=== PATIENT | female | born 1945 | race Caucasian/White ===

== ENCOUNTER 2016-12-12 01:23 | Emergency (ER) | payer MEDICARE, MEDICAID ==
[2016-12-12] MEDS ORDERED: ASPIRIN 81 MG TABLET, CHEWABLE PO ONE (01:33)
[2016-12-12 01:39] LABS: ABSOLUTE BASOPHILS # (AUTO) 0.1 10^3/uL (0.0-0.2); ABSOLUTE LYMPHOCYTES (AUTO) 1.2 10^3/uL (0.5-4.7); ABSOLUTE MONOCYTES (AUTO) 0.3 10^3/uL (0.1-1.4); ABSOLUTE NEUT (AUTO) 7.7 10^3/uL (1.7-8.2); BASOPHILS % (AUTO) 0.6 % (0-2); EOSINOPHILS % (AUTO) 0.2 % (0-6); HEMOGLOBIN 12.3 g/dL (12.0-15.5); HGB HCT DIFFERENCE -0.1; LYMPHOCYTES % (AUTO) 12.8 % (13-45); MEAN CORPUSCULAR HEMOGLOBIN 32.8 pg (27.0-33.4); MEAN CORPUSCULAR HGB CONC 33.3 g/dL (32.0-36.0); MEAN CORPUSCULAR VOLUME 99 fl (80-97); MONOCYTES % (AUTO) 3.2 % (3-13); RED BLOOD COUNT 3.75 10^6/uL (3.72-5.28); RED CELL DISTRIBUTION WIDTH 13.9 % (11.5-14.0); SEGMENTED NEUTROPHILS % (AUTO) 83.2 % (42-78); WHITE BLOOD COUNT 9.3 10^3/uL (4.0-10.5)
[2016-12-12 02:09] LABS: ALANINE AMINOTRANSFERASE 31 U/L (9-52); ALBUMIN 3.9 g/dL (3.5-5.0); ALKALINE PHOSPHATASE 70 U/L (38-126); ANION GAP 11 (5-19); ASPARTATE AMINO TRANSFERASE 34 U/L (14-36); BILIRUBIN,DIRECT 0.4 mg/dL (0.0-0.4); BILIRUBIN,TOTAL 0.7 mg/dL (0.2-1.3); BLOOD UREA NITROGEN 12 mg/dL (7-20); CALCIUM 9.3 mg/dL (8.4-10.2); CARBON DIOXIDE 26 mmol/L (22-30); CHLORIDE 106 mmol/L (98-107); CREATINE KINASE 72 U/L (30-135); CREATININE RESULT 0.62 mg/dL (0.52-1.25); GLUCOSE 108 mg/dL (75-110); POTASSIUM 4.3 mmol/L (3.6-5.0); SODIUM 143.3 mmol/L (137-145); TOTAL PROTEIN 6.5 g/dL (6.3-8.2)
[2016-12-12 02:21] LABS: CREATINE KINASE MB 4.24 ng/mL (<4.55)
[2016-12-12 02:27] LABS: TROPONIN I 1.47 ng/mL
--- NOTE | 2016-12-12 02:32 | ER Document Report ---
ED General - General Chief Complaint: Nausea/Vomiting Stated Complaint: NAUSEA/VOMITING Time Seen by Provider: 12/12/16 02:30 Notes: Patient is a 71-year-old female presents with complaint of nausea and chest pain. She started having nausea approximately 12 hours ago. She then started to develop chest pressure. She said she tried to ignore it and gradually got worse and so she called a month. Paramedics gave her 4 sublingual nitro. She is now chest pain-free. The nitro did make her briefly hypotensive but this responded well to fluids. Said no previous history of cardiac disease. She does have history of high cholesterol. She denies any recent bleeding. No other complaints at this time. - Related Data Allergies/Adverse Reactions: No Known Allergies Allergy (Verified 12/12/16 01:49) Home Medications: Current Home Medications Albuterol Sulfate [Proair HFA] 1 - 2 puff IH Q4H 12/12/16 [History] Aripiprazole [Abilify 2 mg Tablet] 2 mg PO DAILY 12/12/16 [History] Aspirin 81 mg PO DAILY 12/12/16 [History] Donepezil HCl [Aricept] 5 mg PO QHS 12/12/16 [History] Ezetimibe [Zetia] 10 mg PO DAILY 12/12/16 [History] Memantine HCl [Namenda Xr] 14 mg PO DAILY 12/12/16 [History] Ondansetron HCl [Zofran] 1 - 2 mg PO Q4H 12/12/16 [History] Simvastatin 10 mg PO DAILY 12/12/16 [History] Temazepam [Restoril 15 mg Capsule] 15 mg PO QHS PRN 12/12/16 [History] Vortioxetine Hydrobromide [Trintellix] 10 mg PO DAILY 12/12/16 [History] Past Medical History - Social History Smoking Status: Unknown if Ever Smoked Frequency of alcohol use: None Drug Abuse: None Family History: Reviewed & Not Pertinent - Past Medical History Cardiac Medical History: Reports: Hx Hypercholesterolemia Denies: Hx Coronary Artery Disease, Hx Heart Attack, Hx Hypertension Pulmonary Medical History: Denies: Hx Asthma, Hx Bronchitis, Hx COPD, Hx Pneumonia Neurological Medical History: Denies: Hx Cerebrovascular Accident, Hx Seizures Musculoskeltal Medical History: Reports Hx Arthritis Psychiatric Medical History: Reports: Hx Depression Past Surgical History: Reports: Hx Hysterectomy. Denies: Hx Pacemaker - Immunizations Hx Diphtheria, Pertussis, Tetanus Vaccination: Yes Review of Systems - Review of Systems Notes: My Normal Review Basic REVIEW OF SYSTEMS: CONSTITUTIONAL : Denies fever, chills, or sweats. Denies recent illness. EENT: Denies eye, ear, throat, or mouth pain or symptoms. Denies nasal or sinus congestion. CARDIOVASCULAR: Had chest pain RESPIRATORY: Denies cough, cold, or chest congestion. Denies shortness of breath, difficulty breathing, or wheezing. GASTROINTESTINAL: Denies abdominal pain. Nausea. Denies constipation. Last BM: GENITOURINARY: Denies difficulty urinating, painful urination, burning, frequency, or blood in urine. MUSCULOSKELETAL: Denies neck or back pain or joint pain or swelling. SKIN: Denies rash or skin lesions. NEUROLOGICAL: Denies altered mental status or loss of consciousness. Denies headache. Denies weakness or paralysis or loss of use of either side. Denies problems with gait or speech. Denies sensory or motor loss. ALL OTHER SYSTEMS REVIEWED AND NEGATIVE. Physical Exam - Vital signs Vitals: Pulse Ox 98 12/12/16 01:33 - Notes Notes: General Appearance: Well nourished, alert, cooperative, no acute distress, no obvious discomfort. Vitals: reviewed, See vital signs table. Head: no swelling or tenderness to the head Eyes: PERRL, EOMI, Conjuctiva clear Neck: Supple, no neck tenderness Lungs: No wheezing, No rales, No rhonci, No accessory muscle use, good air exchange bilaterally. Heart: Normal rate, Regular rythm, No murmur, no rub Abdomen: Normal BS, soft, No rigidity, No abdominal tenderness, No guarding, no rebound, no abdominal masses, no organomegaly Extremities: strength 5/5 in all extremities, good pulses in all extremities, no swelling or tenderness in the extremities, no edema. Skin: warm, dry, appropriate color, no rash Neuro: speech clear, oriented x 3, normal affect, responds appropriately to questions. Course - Vital Signs Vital signs: Temp Pulse Resp BP Pulse Ox 98.3 F 11 L 90/64 L 96 12/12/16 07:06 12/12/16 07:21 12/12/16 07:01 12/12/16 07:21 - Laboratory Result Diagrams: 12/12/16 01:28 12/12/16 01:28 Laboratory results interpreted by me: 12/12/16 01:28 MCV 99 H Seg Neutrophils % 83.2 H Lymphocytes % 12.8 L - EKG Interpretation by Me Additional EKG results interpreted by me: 12/12/16 02:31 EKG is reviewed and interpreted by me. EKG shows normal sinus rhythm with a rate is [address] segment elevation or depression. No ischemic T-wave inversions. ID interval, QRS duration, QTc intervals are within normal range. Old EKG available for comparison. - Transfer of Care Notes: 12/12/16 07:38 It appears the patient has had a STEMI. I have given her Lovenox. She has had aspirin. I did speak with Dr. Saavedra at [facility] who has accepted her in transfer. [facility] did call back and said they will have a bed after noon today. To go to [facility]. I did inform her of the delay and she is okay with this. Dictation of this chart was performed using voice recognition software; therefore, there may be some unintended grammatical errors. Discharge - Discharge Clinical Impression: NSTEMI (non-ST elevated myocardial infarction) Condition: Stable Disposition: [facility]
[2016-12-12] MEDS ORDERED: ENOXAPARIN SODIUM INJ 60 MG/0.6 ML DISP.SYRIN SUBCUT SCH (03:15)
--- NOTE | 2016-12-12 03:41 | RADIOLOGY REPORT (SQ) ---
EXAM DESCRIPTION: CHEST SINGLE VIEW COMPLETED DATE/TIME: 12/12/2016 3:28 am REASON FOR STUDY: cp COMPARISON: None. EXAM PARAMETERS: NUMBER OF VIEWS: One view. TECHNIQUE: Single frontal radiographic view of the chest acquired. RADIATION DOSE: NA LIMITATIONS: None. FINDINGS: LUNGS AND PLEURA: No opacities, masses or pneumothorax. No pleural effusion. Moderate emp hysematous hyperinflation. MEDIASTINUM AND HILAR STRUCTURES: No masses. Contour normal. HEART AND VASCULAR STRUCTURES: Heart normal in size. Normal vasculature. BONES: No acute findings. HARDWARE: None in the chest. OTHER: Bilateral mammary prostheses. IMPRESSION: NO ACUTE RADIOGRAPHIC FINDING IN THE CHEST. TECHNICAL DOCUMENTATION: JOB ID: [id number]
[2016-12-12] MEDS: ENOXAPARIN SODIUM INJ 60 MG/0.6 ML DISP.SYRIN SUBCUT SCH ×2 (04:17→17:29)
[2016-12-12] MEDS ORDERED: ONDANSETRON HCL INJ/PF 4 MG/2 ML SDV IV ONE (04:23)
[2016-12-12] MEDS ORDERED: PROPOFOL 100 ML IV PRN (06:17)
[2016-12-12] MEDS ORDERED: PROPOFOL INJ 200 MG/20 ML VIAL IV ONE (06:17)
[2016-12-12] MEDS ORDERED: ALPRAZOLAM 0.5 MG TABLET PO PRN (07:35)
[2016-12-12] MEDS ORDERED: ARIPIPRAZOLE 2 MG TABLET PO SCH ×2 (07:45→10:00)
[2016-12-12] MEDS ORDERED: MEMANTINE HCL 10 MG TABLET PO SCH ×2 (07:45→10:00)
[2016-12-12] MEDS ORDERED: ASPIRIN 325 MG TABLET PO SCH (07:45)
[2016-12-12] MEDS ORDERED: SIMVASTATIN 10 MG TABLET PO SCH (07:45)
[2016-12-12] MEDS ORDERED: BUPROPION HCL 100 MG TABLET PO SCH ×2 (07:45→10:00)
--- NOTE | 2016-12-12 09:22 | EKG REPORT ---
SEVERITY:- ABNORMAL ECG - SINUS RHYTHM PROBABLE ANTEROSEPTAL INFARCT, AGE INDETERM : Confirmed by: David Baeza 12-Dec-2016 09:22:26
[2016-12-12] MEDS ORDERED: NITROGLYCERIN 5 MG (0.2 MG/HR) PATCH.TD24 TD ONE (12:30)
[2016-12-12] MEDS ORDERED: ALBUTEROL SULFATE HFA (90 MCG/PUFF) 8 GM MDI (1 MDI/ER DISP) IH SCH (16:00)
[2016-12-12] MEDS ORDERED: DONEPEZIL HCL 5 MG TABLET PO SCH (22:00)
[2016-12-12] MEDS ORDERED: TEMAZEPAM 15 MG CAPSULE PO SCH (22:00)
[2016-12-12 22:22] VITALS: BP 92/69
== END 2016-12-12 21:30 | disposition short-term general hospital (02) ==
LOC: ER 01:23
DX: I21.4 Non-ST elevation (NSTEMI) myocardial infarction (principal); R07.89 Other chest pain; R11.2 Nausea with vomiting, unspecified
CPT/HCPCS: 93005; 99285; 96372; 96374; 36415; 82553; 82550; 85025; 80053; 84484; 71010; 93010; A9270 ×4; J2405; J1650; J3490

== ENCOUNTER 2017-02-21 22:36 | Inpatient (IN) | payer MEDICARE, MEDICAID ==
[2017-02-21] MEDS ORDERED: ACETAMINOPHEN 325 MG TABLET PO ONE (23:26)
[2017-02-21] MEDS ORDERED: NORMAL SALINE 1000 ML 1,000 ML IV ONE (23:39)
[2017-02-21 23:46] LABS: PROTHROMBIN TIME 13.9 SEC (11.4-15.4); VENOUS BLOOD BASE EXCESS 3.4 mmol/L; VENOUS BLOOD HCO3 28.7 mmol/L (20-32); VENOUS BLOOD PCO2 46.2 mmHg (35-63); VENOUS BLOOD PH 7.41 (7.30-7.42)
[2017-02-21 23:48] LABS: HEMATOCRIT 36.7 % (36.0-47.0); HEMOGLOBIN 12.5 g/dL (12.0-15.5); HGB HCT DIFFERENCE 0.8; MEAN CORPUSCULAR HEMOGLOBIN 33.2 pg (27.0-33.4); MEAN CORPUSCULAR HGB CONC 34.1 g/dL (32.0-36.0); MEAN CORPUSCULAR VOLUME 97 fl (80-97); RED BLOOD COUNT 3.77 10^6/uL (3.72-5.28); RED CELL DISTRIBUTION WIDTH 12.8 % (11.5-14.0); WHITE BLOOD COUNT 9.2 10^3/uL (4.0-10.5)
[2017-02-21 23:51] LABS: ALANINE AMINOTRANSFERASE 30 U/L (9-52); ALBUMIN 4.5 g/dL (3.5-5.0); ALKALINE PHOSPHATASE 94 U/L (38-126); ANION GAP 11 (5-19); ASPARTATE AMINO TRANSFERASE 24 U/L (14-36); BILIRUBIN,DIRECT 0.4 mg/dL (0.0-0.4); BILIRUBIN,TOTAL 0.8 mg/dL (0.2-1.3); BLOOD UREA NITROGEN 20 mg/dL (7-20); CARBON DIOXIDE 27 mmol/L (22-30); CHLORIDE 99 mmol/L (98-107); CREATININE RESULT 0.71 mg/dL (0.52-1.25); GLUCOSE 139 mg/dL (75-110); POTASSIUM 3.8 mmol/L (3.6-5.0); SODIUM 137.2 mmol/L (137-145); TOTAL PROTEIN 7.1 g/dL (6.3-8.2)
[2017-02-22 00:04] LABS: BASOPHILS % (MANUAL) 0 % (0-2); EOSINOPHILS % (MANUAL) 0 % (0-6); LYMPHOCYTES % (MANUAL) 4 % (13-45); TOTAL CELLS COUNTED 100
[2017-02-22 00:06] LABS: OVALOCYTES SLIGHT; POIKILOCYTOSIS SLIGHT; SCHISTOCYTES SLIGHT; TOXIC GRANULATION SLIGHT; TOXIC VACUOLATION PRESENT
--- NOTE | 2017-02-22 00:20 | ER Document Report ---
ED General - General Chief Complaint: Urinary Problem Stated Complaint: LEG PAIN Time Seen by Provider: 02/22/17 00:17 Notes: Patient is a 71-year-old female presents with complaint of fever. She also was having some leg shaking and pain but says that is now gone after she received Tylenol. She denies any cough or congestion. No vomiting or diarrhea. She had a recent diagnosis of UTI. She denies any current pain and overall says she feels improved. TRAVEL OUTSIDE OF THE [place] IN LAST 30 DAYS: No - Related Data Allergies/Adverse Reactions: No Known Allergies Allergy (Verified 02/21/17 23:09) Past Medical History - Social History Smoking Status: Unknown if Ever Smoked Frequency of alcohol use: None Drug Abuse: None Family History: Reviewed & Not Pertinent - Past Medical History Cardiac Medical History: Reports: Hx Hypercholesterolemia Denies: Hx Coronary Artery Disease, Hx Heart Attack, Hx Hypertension Pulmonary Medical History: Denies: Hx Asthma, Hx Bronchitis, Hx COPD, Hx Pneumonia Neurological Medical History: Denies: Hx Cerebrovascular Accident, Hx Seizures Renal/ Medical History: Denies: Hx Peritoneal Dialysis Musculoskeltal Medical History: Reports Hx Arthritis Psychiatric Medical History: Reports: Hx Depression Past Surgical History: Reports: Hx Hysterectomy. Denies: Hx Pacemaker - Immunizations Hx Diphtheria, Pertussis, Tetanus Vaccination: Yes Review of Systems - Review of Systems Notes: My Normal Review Basic REVIEW OF SYSTEMS: CONSTITUTIONAL : fever EENT: Denies eye, ear, throat, or mouth pain or symptoms. Denies nasal or sinus congestion. CARDIOVASCULAR: Denies chest pain. RESPIRATORY: Denies cough, cold, or chest congestion. Denies shortness of breath, difficulty breathing, or wheezing. GASTROINTESTINAL: Denies abdominal pain. Denies nausea, vomiting, or diarrhea. GENITOURINARY: Recent UTI. MUSCULOSKELETAL: Denies neck or back pain or joint pain or swelling. SKIN: Denies rash or skin lesions. NEUROLOGICAL: Denies altered mental status or loss of consciousness. Denies headache. Denies weakness or paralysis or loss of use of either side. Denies problems with gait or speech. Denies sensory or motor loss. ALL OTHER SYSTEMS REVIEWED AND NEGATIVE. Physical Exam - Vital signs Vitals: Temp Pulse Resp BP Pulse Ox 102.0 F H 96 22 H 101/59 L 93 02/21/17 23:09 02/21/17 23:09 02/21/17 23:09 02/21/17 23:09 02/21/17 23:09 - Notes Notes: General Appearance: Well nourished, alert, cooperative, no acute distress, no obvious discomfort. Ill appearing. Vitals: reviewed, See vital signs table. Head: no swelling or tenderness to the head Eyes: PERRL, EOMI, Conjuctiva clear Mouth: No decreasd moisture Throat: No tonsillar inflammation, No airway obstruction, No lymphadenopathy Neck: Supple, no neck tenderness, No thyromegaly Lungs: No wheezing, No rales, No rhonci, No accessory muscle use, good air exchange bilaterally. Heart: Normal rate, Regular rythm, No murmur, no rub Abdomen: Normal BS, soft, No rigidity, No abdominal tenderness, No guarding, no rebound, no abdominal masses, no organomegaly Extremities: strength 5/5 in all extremities, good pulses in all extremities, no swelling or tenderness in the extremities, no edema. Skin: warm, dry, appropriate color, no rash Neuro: speech clear, oriented x 3, normal affect, responds appropriately to questions. Cranial nerves II through XII are intact. Patient was all extremities without difficulty. Course - Re-evaluation Re-evalutation: 02/22/17 01:18 Patient started to develop some hypotension but shows normal heart rate. I will bolus her with IV fluids. I will start antibiotics. Source of fever is not clear at this time. 02/22/17 03:30 Unfortunately despite multiple fluid boluses patient's blood pressure continues to return to becoming hypotensive again. I will start the patient on pressors and place a central line. 02/22/17 04:57 Patient will start Levophed 5 mcg and her blood pressure came up well. Unfortunately, also after immediately starting the Levophed she became very bradycardic into the low 30s. I merely turned down the Levophed and give her 0.5 mg of atropine. If it does have occasional side effects were can cause serious bradycardia. We therefore will stop the Levophed and place her on dopamine which does not have bradycardia in its side effect profile. 02/22/17 06:20 Patient has sepsis of unknown source. She her lactic acid is not elevated but patient started become hypotensive while here in the ER. She did not respond to IV fluids and therefore a central line was placed and pressors were started. Patient responded well to pressors. Patient did initially become very bradycardic with Levophed. The foot was then stopped and patient was started on dopamine. Her heart rate has remained normal dopamine her blood pressure supported well. Patient will be admitted to the hospital. I did speak with Dr. Gibson who agrees to admit the patient. Exact source of sepsis and fever is unclear. Patient has been started on broad-spectrum antibiotics. Dictation of this chart was performed using voice recognition software; therefore, there may be some unintended grammatical errors. - Vital Signs Vital signs: Temp Pulse Resp BP Pulse Ox 102.0 F H 96 23 H 138/67 H 96 02/21/17 23:09 02/21/17 23:09 02/22/17 06:01 02/22/17 06:00 02/22/17 06:01 - Laboratory Result Diagrams: 02/21/17 23:20 02/21/17 23:20 Laboratory results interpreted by me: 02/21/17 02/21/17 02/21/17 23:20 23:20 23:53 Seg Neuts % (Manual) 95 H Lymphocytes % (Manual) 4 L Monocytes % (Manual) 1 L Abs Neuts (Manual) 8.7 H Abs Lymphs (Manual) 0.4 L Glucose 139 H POC Glucose Urine Ketones TRACE H Urine Urobilinogen 4.0 H 02/22/17 00:15 Seg Neuts % (Manual) Lymphocytes % (Manual) Monocytes % (Manual) Abs Neuts (Manual) Abs Lymphs (Manual) Glucose POC Glucose 113 H Urine Ketones Urine Urobilinogen - EKG Interpretation by Me Additional EKG results interpreted by me: 02/22/17 00:19 EKG is reviewed and interpreted by me. EKG shows normal sinus rhythm with rate of [address] segment elevation or depression. No ischemic T-wave inversions. ID interval, QRS duration, QTc intervals are within normal range. Old EKG for comparison is from December 12, 2016. Procedures - Central Line right femoral Consent obtained: Yes Central line pre-insertion: Sterile PPE donned, Chloraprep applied Central line lumen type: Triple Anesthetic type: 1% Lidocaine mL's of anesthesia: 3 Ultrasound guided: Yes Line secured with sutures: Yes Central line post-insertion: Blood return from lumens, Biopatch applied, Sutured Number of attempts: 2 Notes: 02/22/17 04:[address] a right IJ. I was able to get a good flush and return of dark blood upon initial needlestick however patient's vein when I allow the wire to thread through. I therefore aborted and held pressure. Then applied a gauze. I then placed the right femoral line. I was able to cannulate his on first attempt under ultrasound guidance without any difficulty. Patient tolerated procedure well. Critical Care Note - Critical Care Note Total time excluding time spent on procedures (mins): 50 Comments: Critical care time for this patient not including time spent on procedures approximately 50 minutes due to management of hypertension, management of bradycardia, management of septic shock. Dictation of this chart was performed using voice recognition software; therefore, there may be some unintended grammatical errors. Discharge - Discharge Clinical Impression: Fever Qualifiers: Fever type: unspecified Qualified Code(s): R50.9 - Fever, unspecified Sepsis Qualifiers: Sepsis type: sepsis due to unspecified organism Qualified Code(s): A41.9 - Sepsis, unspecified organism Hypotension Qualifiers: Hypotension type: unspecified hypotension type Qualified Code(s): I95.9 - Hypotension, unspecified Condition: Stable Disposition: ADMITTED INPATIENT Admitting Provider: Hospitalist Unit Admitted: ICU
[2017-02-22 00:30] LABS: APPEARANCE,URINE CLEAR; BILIRUBIN,URINE NEGATIVE (NEGATIVE); GLUCOSE, URINE NEGATIVE (NEGATIVE); KETONES,URINE TRACE mg/dL (NEGATIVE); LEUKOCYTE ESTERASE,URINE NEGATIVE (NEGATIVE); NITRITE,URINE NEGATIVE (NEGATIVE); PROTEIN,URINE NEGATIVE (NEGATIVE); URINE SPECIFIC GRAVITY 1.019
--- NOTE | 2017-02-22 00:38 | RADIOLOGY REPORT (SQ) ---
EXAM DESCRIPTION: CHEST SINGLE VIEW COMPLETED DATE/TIME: 02/22/2017 12:02 am REASON FOR STUDY: possible sepsis COMPARISON: 12/12/2016. EXAM PARAMETERS: NUMBER OF VIEWS: One view. TECHNIQUE: Single frontal radiographic view of the chest acquired. RADIATION DOSE: NA LIMITATIONS: None. FINDINGS: LUNGS AND PLEURA: No opacities, masses or pneumothorax. No pleural effusion. Moderate emp hysematous hyperinflation. MEDIASTINUM AND HILAR STRUCTURES: No masses. Contour normal. HEART AND VASCULAR STRUCTURES: Heart normal in size. Normal vasculature. BONES: No acute findings. HARDWARE: None in the chest. OTHER: Bilateral mammary prostheses. IMPRESSION: No acute cardiopulmonary findings. TECHNICAL DOCUMENTATION: JOB ID: [id number]
[2017-02-22] MEDS ORDERED: VANCOMYCIN HCL INJ 1000 MG VIAL IV ONE (01:18)
[2017-02-22] MEDS ORDERED: PIPERACILLIN/TAZOBACTAM 3.375 GM VIAL IV ONE (01:18)
[2017-02-22] MEDS ORDERED: NORMAL SALINE 1000 ML 1,000 ML IV ONE ×2 (01:18→08:11)
[2017-02-22] MEDS ORDERED: DEXTROSE 5%-WATER 250 ML with NOREPINEPHRINE BITARTRATE 4 MG IV PRN ×2 (03:29)
[2017-02-22] MEDS ORDERED: NOREPINEPHRINE BITARTRATE INJ/PF 4 MG/4 ML SDV IV ONE (04:18)
[2017-02-22] MEDS ORDERED: ATROPINE SULFATE INJ 1 MG/1 ML VIAL ONE (04:55)
[2017-02-22] MEDS ORDERED: DOPAMINE HCL/DEXTROSE 5%-WATER 800 MG/250 ML RTUINJ IV PRN ×2 (04:56→07:19)
[2017-02-22] MEDS ORDERED: ATROPINE SULFATE INJ 1 MG/1 ML VIAL IV ONE (04:56)
[2017-02-22] MEDS ORDERED: MAGNESIUM HYDROXIDE SUSP 30 ML UDCUP PO PRN (07:19)
[2017-02-22] MEDS ORDERED: NORMAL SALINE 1000 ML 1,000 ML IV PRN (07:19)
[2017-02-22] MEDS ORDERED: DEXTROSE 50%-WATER 25 GM/50 ML DISP.SYRIN IV PRN ×2 (07:22)
[2017-02-22] MEDS ORDERED: GLUCAGON,HUMAN RECOMB 1 MG INJ IM PRN (07:22)
[2017-02-22] MEDS ORDERED: DEXTROSE 40% GEL 15 GM TUBE PO PRN ×2 (07:22)
[2017-02-22] MEDS ORDERED: PROMETHAZINE HCL 25 MG TABLET PO PRN (07:24)
[2017-02-22 08:00] LABS: ABSOLUTE LYMPHOCYTES (AUTO) 0.6 10^3/uL (0.5-4.7); ABSOLUTE MONOCYTES (AUTO) 0.2 10^3/uL (0.1-1.4); ABSOLUTE NEUT (AUTO) 5.8 10^3/uL (1.7-8.2); BASOPHILS % (AUTO) 0.5 % (0-2); EOSINOPHILS % (AUTO) 0.2 % (0-6); HEMOGLOBIN 12.1 g/dL (12.0-15.5); HGB HCT DIFFERENCE 1.3; LYMPHOCYTES % (AUTO) 9.1 % (13-45); MEAN CORPUSCULAR HGB CONC 34.4 g/dL (32.0-36.0); MEAN CORPUSCULAR VOLUME 96 fl (80-97); MONOCYTES % (AUTO) 2.8 % (3-13); RED BLOOD COUNT 3.65 10^6/uL (3.72-5.28); RED CELL DISTRIBUTION WIDTH 12.8 % (11.5-14.0); SEGMENTED NEUTROPHILS % (AUTO) 87.4 % (42-78); WHITE BLOOD COUNT 6.7 10^3/uL (4.0-10.5)
--- NOTE | 2017-02-22 08:11 | PDOC H&P ---
History of Present Illness Admission Date/PCP: 02/22/17 07:19 Roshni Blanco MD [place] Patient complains of: fever, back & leg pain History of Present Illness: BEBA WALLER is a 71 year old female with admitted long-term memory problems, along with mild anxiety and depression, without suicidal or homicidal ideation, hyperlipidemia, frequent urinary tract infections, eczema, occasional constipation, and with a lung nodule, per her report, actually scheduled for lung biopsy on the of this month, who presents to the emergency room for evaluation of above complaints. Patient has been discussed with emergency room physician who evaluated the patient. Patient was seen at her primary care provider's office on the or and started on an oral antibiotic for urinary tract infection. Uncertain specifically which antibiotic. Has only taken 1 dose. The evening of the , patient began having fever, with associated lower back and lower extremity cramping-like pain, along with shaking of her legs. Took a Tylenol, and once the fever resolved, so did her shaking and pain. No difficulty voiding. States she does have occasional mild fecal incontinence , but that is nothing unusual for her. Developed a mild headache approximately 20 minutes prior to my seeing her; states she rarely gets a headache. Emergency room physician noted her blood pressure to be somewhat low. Was given a liter bolus of fluid. However, blood pressure did not respond despite 2 more liter boluses of IV fluid, patient was started on Levophed. This was discontinued due to bradycardia and patient was started on dopamine. Blood pressures have been acceptable since then. She has had nausea but no vomiting. No dysuria or diarrhea. No chest or abdominal pain. No prior such problems with fever and low blood pressure. Denies any "sore spot " anywhere on her body. Is not currently using a tampon. Currently resting quietly, primarily complaining of being fatigued. Dictation via voice recognition software. Laboratory results are listed in [facility] and are reviewed. X-ray summary results are listed below, with full report(s) reviewed. . EKG reviewed and compared to a prior tracing from December 12 of this year. Social history/personal habits: . Lives with son. On disability due to memory problems, and the fact that "I cannot read properly." No tobacco use since 2008. No alcohol use for the past 5 years; never a heavy user. Denies illicit drug use. Allergies/adverse reactions are listed in [facility] and are reviewed. Home medications initially autopopulated into behaview may not accurately reflect patient's true medications, dosages, and/or frequencies. switch technician to reconcile medications. Bottle review performed. Unfortunately, patient not certain of all medications/dosages/frequencies. REVIEW OF SYSTEMS: Constitutional: No fever or chills. Eyes: Wears glasses. ENT: No swallowing problems or complaints. Partial hearing loss. Pulmonary: No current complaints. Cardiovascular: No current complaints, including chest pain. Gastrointestinal: See history and present illness. Skin: See history and present illness. Hematologic: Easy bruising. Neurologic: See history and present illness. Musculoskeletal: See history and present illness. Psychiatric: Mild anxiety and depression. Denies suicidal or homicidal ideation. Endocrine: No current complaints, including polyuria. Genitourinary: No current complaints, including dysuria. 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 49.9 kg. Height is not recorded on the chart. Blood pressure 138/67, with dopamine at 10 mcg/kg/min. Pulse 83 and regular. 96% saturation on room air. Respirations are 16 and unlabored. Temperature 102.0 shortly after arrival in the emergency room; skin feels normothermic at present. Thin otherwise well-developed though somewhat chronically ill-appearing female who appears a bit younger than her stated age. Pleasant awake alert and cooperative. No obvious distress other than somewhat anxious. No agitation. Skin is warm and dry. No grossly obvious evidence of rash in areas of skin examined, including back, upper and lower extremities, neck, and face. No subcutaneous nodules palpated. ENT: Hearing grossly normal to normal conversation. Tongue midline on protrusion pink and slightly tacky. Eyes: No scleral icterus. Pupils equal and reactive to light at 4 mm. [place] conjunctivae. No raccoon eyes. Neck is supple and nontender to gentle active range of motion and palpation. Midline trachea. No palpable thyroid nodule mass enlargement or tenderness. Lymphatic: No palpable cervical or clavicular nodes. Neck and lymphatic exams limited by patient body habitus. Psychiatric: Reasonable insight into acute and chronic medical issues. Oriented to time location and why here. Occasional slight difficulty recalling chronic aspects of her health. Lungs: Auscultation reveals clear and equal breath sounds bilaterally. No use of accessory respiratory muscles. Cardiovascular: Heart regular rate and rhythm, without gallop murmur or rub. No carotid or abdominal aortic bruits. No ankle or pedal edema. Palpable dorsalis pedis pulses. Abdomen:soft slightly distended nontender with positive bowel sounds. Unable to adequately evaluate abdomen for masses or organomegaly due to distention. Extremities: Hands and feet are warm and dry. No calf tenderness to compression. No grossly obvious visual evidence of calf swelling. Gentle manipulation of upper and lower extremities fails to reveal any obvious evidence of injury or instability to involved major joints. Visual examination of her back, along with palpation along her dorsal spine fails to reveal any evidence of inflammation, swelling, or tenderness. Neurologic: Cranial Nerves II through XII are grossly intact. Light touch intact at face, upper and lower extremities. Motor function of major muscle groups upper and lower extremities 5 over 5 and symmetric. Patellar reflexes absent. Absent Babinski. No nystagmus. Mild bilateral ankle clonus. Digital rectal exam reveals quite acceptable tone. Past Medical History Cardiac Medical History: Reports: Hyperlipidema Denies: Atrial Fibrillation, Congestive Heart Failure, Coronary Artery Disease, DVT, Myocardial Infarction, Hypertension, Pulmonary Embolism Pulmonary Medical History: Reports: Other - Scheduled to have lung biopsy 2016 for a "spot" on her lung. Denies: Asthma, Bronchitis, Chronic Obstructive Pulmonary Disease (COPD), Pneumonia, Sleep Apnea EENT Medical History: Reports: Eyes - Glasses, Ears - Partial hearing loss Denies: Throat Neurological Medical History: Reports: Other - Chronic "memory problems." Denies: Hemorrhagic CVA, Ischemic CVA, Seizures Endocrine Medical History: Denies: Diabetes Mellitus Type 1, Diabetes Mellitus Type 2, Hyperthyroidism, Hypothyroidism Renal/ Medical History: Reports: Other - Frequent urinary tract infections GI Medical History: Reports: Other - Occasional constipation Denies: Cirrhosis, Gastroesophageal Reflux Disease, Hepatitis, Peptic Ulcer Disease Musculoskeltal Medical History: Reports: Arthritis Skin Medical History: Reports: Eczema Psychiatric Medical History: Reports: Depression, General Anxiety Disorder Denies: Alcohol Dependency, Substance Abuse, Tobacco Dependency Hematology: Reports: Other - Easy bruising Denies: Anemia Infectious Medical History: Denies: Hepatitis B, Hepatitis C Past Surgical History Past Surgical History: Reports: Hysterectomy, Vascular Surgery - Vein stripping of leg. Social History Information Source: Patient, Emergency Med Personnel, [facility] Records Lives with: Family Smoking Status: Former Smoker Frequency of Alcohol Use: None Drugs: None - Advance Directive Resuscitation Status: Full Code Surrogate healthcare decision maker:: Son Family History Family History: Reviewed & Not Pertinent Parental Family History Reviewed: Yes - Mother of dementia, father of cancer. Children Family History Reviewed: Yes - Healthy Sibling(s) Family History Reviewed.: Yes - Arthritis Medication/Allergy Home Medications: Aripiprazole [Abilify 2 mg Tablet] 4 mg PO DAILY 02/22/17 Bupropion HCl [Wellbutrin Xl 300mg 24hr Tablet] 30 mg PO QAM 02/22/17 Donepezil HCl [Aricept 5 mg Tablet] 5 mg PO QHS 02/22/17 Ezetimibe [Zetia 10 mg Tablet] 10 mg PO DAILY 02/22/17 Memantine HCl [Namenda Xr] 14 mg PO DAILY 02/22/17 Nitroglycerin [Nitrostat] 0.4 mg SL Q5MP PRN 02/22/17 Ondansetron HCl [Zofran 4 mg Tablet] 8 mg PO BIDP PRN 02/22/17 Simvastatin [Zocor 10 mg Tablet] 10 mg PO DAILY 02/22/17 Temazepam [Restoril 15 mg Capsule] 15 mg PO HSP PRN 02/22/17 Allergies/Adverse Reactions: No Known Allergies Allergy (Unverified 02/22/17 08:12) Physical Exam Vital Signs: Temp Pulse Resp BP Pulse Ox 102.0 F H 96 15 107/47 L 96 02/21/17 23:09 02/21/17 23:09 02/22/17 07:01 02/22/17 07:00 02/22/17 07:01 Results Impressions: Chest X-Ray 02/21/17 23:25 IMPRESSION: No acute cardiopulmonary findings. Assessment & Plan - Diagnosis (1) HLD (hyperlipidemia) Qualifiers: Hyperlipidemia type: unspecified Qualified Code(s): E78.5 - Hyperlipidemia , unspecified Is this a current diagnosis for this admission?: Yes Plan: Resume home medications as appropriate once these have been determined and reviewed. (2) Back pain Qualifiers: Back pain location: low back pain Chronicity: acute Back pain laterality : unspecified Sciatica presence: unspecified whether sciatica present Qualified Code(s): M54.5 - Low back pain Is this a current diagnosis for this admission?: Yes Plan: Likely due to muscle spasm during fever and shaking chills. No outward clinical evidence of infection or acute injury. Denies chronic back pain. (3) Clonus Is this a current diagnosis for this admission?: Yes Plan: Bilateral ankle clonus. Uncertain significance. Follow clinically. (4) Fever Qualifiers: Fever type: unspecified Qualified Code(s): R50.9 - Fever, unspecified Is this a current diagnosis for this admission?: Yes Plan: Suspect due to underlying urinary tract infection. Order written for staff to request urinalysis and culture results from primary care provider. Unasyn. Blood and urine cultures. (5) Lower extremity pain, bilateral Is this a current diagnosis for this admission?: Yes Plan: As above, under "back pain." (6) Septic shock Is this a current diagnosis for this admission?: Yes Plan: Suspect urinary tract infection as source. Continue dopamine. ICU admission. I have strongly encouraged patient not to get out of bed without notifying staff , to avoid a fall with injury. Knee high SCDs for DVT prophylaxis, along with subcutaneous heparin. Impression and plans were discussed with patient, who concurs. Discussed with day hospitalist team. Time spent in evaluation and management of patient: 70 critical-care minutes. (7) UTI (urinary tract infection) Qualifiers: Urinary tract infection type: site unspecified Is this a current diagnosis for this admission?: Yes - Time Critical Time spent with patient: 35 or more minutes Anticipated discharge: Home Within: within 72 hours - Inpatient Certification Based on my medical assessment, after consideration of the patient's comorbidities, presenting symptoms, or acuity I expect that the services needed warrant INPATIENT care.: Yes I certify that my determination is in accordance with my understanding of Medicare's requirements for reasonable and necessary INPATIENT services [42 CFR 412.3e].: Yes Medical Necessity: Need Close Monitoring Due to Risk of Patient Decompensation, Need For Continuous Telemetry Monitoring, Need for IV Antibiotics, Risk of Diagnosis Which Will Require Inpatient Eval/Care/Monitoring Post Hospital Care: D/C or Transfer Summary
[2017-02-22] MEDS ORDERED: DEXTROSE 5%-WATER 250 ML with PHENYLEPHRINE HCL 40 MG IV PRN ×2 (08:12)
[2017-02-22] MEDS ORDERED: VANCOMYCIN HCL 0 MG in DEXTROSE 5%-WATER 250 ML IV NR (08:15)
[2017-02-22 08:29] LABS: ANION GAP 9 (5-19); BLOOD UREA NITROGEN 13 mg/dL (7-20); CARBON DIOXIDE 21 mmol/L (22-30); CHLORIDE 114 mmol/L (98-107); CREATININE RESULT 0.59 mg/dL (0.52-1.25); GLUCOSE 117 mg/dL (75-110); SODIUM 144.4 mmol/L (137-145)
--- NOTE | 2017-02-22 08:53 | RADIOLOGY REPORT (SQ) ---
EXAM DESCRIPTION: CT HEAD WITHOUT COMPLETED DATE/TIME: 02/22/2017 8:17 am REASON FOR STUDY: headache, septic shock COMPARISON: None. TECHNIQUE: Axial images acquired through the brain without intravenous contrast. Images reviewed wi th bone, brain and subdural windows. Images stored on PACS. All CT scanners at this facility use dose modulation, iterative reconstruction, and/or weight based d osing when appropriate to reduce radiation dose to as low as reasonably achievable (ALARA). [facility]: Dose Right [facility]: CareDose [facility]: Dose Right [facility]: Teradose 4D [facility]: [employer] RADIATION DOSE: Up-to-date CT equipment and radiation dose reduction techniques were employed. CTDIv ol: 64.6 mGy. DLP: 1163 mGy-cm. mGy. LIMITATIONS: None. FINDINGS: VENTRICLES: Normal size and contour. CEREBRUM: Mild spotty decreased density in the bifrontal and biparietal white matter from minimal age -appropriate white matter disease. Low attenuation in the mid ghassan to the left of midline axial imag e 11 likely an old pontine lacunar infarct. No CT evidence of acute large territory ischemic change, acute intracranial hemorrhage, mass effect, or midline shift. CEREBELLUM: No masses. No hemorrhage. Low attenuation in the mid ghassan to the left of midline axial image 11, likely an old pontine lacunar infarct. No evidence for acute infarction. EXTRAAXIAL SPACES: No fluid collections. No masses. ORBITS AND GLOBE: No intra- or extraconal masses. Normal contour of globe without masses. CALVARIUM: No fracture. PARANASAL SINUSES: No fluid or mucosal thickening. SOFT TISSUES: No mass or hematoma. OTHER: No other significant finding. IMPRESSION: Mild spotty age-appropriate white matter disease. 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 No ac brittny findings. TECHNICAL DOCUMENTATION: JOB ID: [id number] Quality ID # [id number]: Final reports with documentation of one or more dose reduction techniques (e.g., Au tomated exposure control, adjustment of the mA and/or kV according to patient size, use of iterative reconstruction technique) 2010 [employer]- All Rights Reserved
[2017-02-22] MEDS ORDERED: SENNOSIDES/DOCUSATE 8.6-50 MG 1 EACH TABLET PO ONE (09:00)
[2017-02-22] MEDS ORDERED: CEFTRIAXONE 2 GM/D5W RTU 2 GM/50 ML RTUPB IV SCH ×2 (09:00→13:00)
[2017-02-22] MEDS ORDERED: PIPERACILLIN SODIUM/TAZOBACTAM 3.375 GM in NORMAL SALINE 100 ML IV SCH (09:00)
[2017-02-22] MEDS ORDERED: ACYCLOVIR SODIUM 750 MG in NORMAL SALINE 250 ML IV ONE (09:30)
--- NOTE | 2017-02-22 09:43 | RADIOLOGY REPORT (SQ) ---
EXAM DESCRIPTION: LUMBAR PUNCTURE COMPLETED DATE/TIME: 02/22/2017 9:20 am REASON FOR STUDY: sepsis, fuo COMPARISON: CT brain 02/22/2017 FLUOROSCOPY TIME: 12 seconds 1 digital image saved to PACS. TECHNIQUE: Fluoroscopic guided lumbar puncture. LIMITATIONS: None. PROCEDURE: After written consent and assessment were obtained, the patient was brought into the fluo roscopy room and placed prone on the table. The patient's lower back was prepped in a sterile fashio n and an entry site was selected under live fluoroscopic guidance. The entry site was anesthetized wi th 1% lidocaine. A 20 gauge needle was advanced through the skin and into the thecal sac at the right paracentral L2-3 level. After approximately 8 ml was drained, the needle was removed and a sterile bandage was placed of the site. Specimens were sent to the lab for testing. A fluoroscopic spot keith ge was saved to PACS confirming level access. FINDINGS: Clear CSF Opening pressure 17 cm of water Closing pressure 11 cm of water IMPRESSION: Lumbar puncture under fluoroscopy. No immediate complication. Fluid sent for testing a s per hospitalist physician COMMENT: Patient medication list reviewed: Yes- Quality ID# [id number]:Eligible professional attests to doc umenting in the medical record they obtained, updated, or reviewed the patient's current medications. . Quality ID 145: Final reports for procedures using fluoroscopy that document radiation exposure [place], or exposure time and number of fluorographic images (if radiation exposure indices are not avail able) TECHNICAL DOCUMENTATION: JOB ID: [id number] [employer]- All Rights Reserved
[2017-02-22] MEDS ORDERED: HEPARIN SOD (PORCINE) 5,000 UNIT/ML 1 ML SYRINGE SUBCUT SCH (10:00)
[2017-02-22] MEDS ORDERED: DOCUSATE SODIUM 100 MG CAPSULE PO SCH (10:00)
[2017-02-22 10:04] LABS: APPEARANCE ALL TUBES CLEAR; RBC DILUENT USED NONE USED; RBC DILUTION FACTOR 1; RBC SIDE 1 0; RBC SIDE 2 0; TOTAL RBC SQUARES COUNTED 225; WHITE BLOOD CELL,CSF 4 /uL (0-5)
--- NOTE | 2017-02-22 10:21 | EKG REPORT ---
SEVERITY:- ABNORMAL ECG - SINUS RHYTHM NONSPECIFIC T ABNORMALITIES, INFERIOR LEADS and ant chest leads. : Confirmed by: David Baeza 22-Feb-2017 10:21:14
--- NOTE | 2017-02-22 10:22 | EKG REPORT ---
SEVERITY:- ABNORMAL ECG - SINUS RHYTHM ABNRM R PROG, CONSIDER ASMI OR LEAD PLACEMENT BORDERLINE T ABNORMALITIES, ANTERIOR LEADS : Confirmed by: David Baeza 22-Feb-2017 10:21:37
[2017-02-22] MEDS ORDERED: PHENYLEPHRINE HCL INJ/PF 10 MG/1 ML SDV ONE (10:24)
[2017-02-22 10:29] LABS: H. INFLUENZAE TYPE B AG NEGATIVE (NEGATIVE); S. PNEUMONIAE AG NEGATIVE (NEGATIVE); STREP. GROUP B AG NEGATIVE (NEGATIVE)
[2017-02-22 10:30] LABS: CSF CULTURED REQUIRED CSF CULTURE ORDERED (CSFY)
[2017-02-22 10:35] LABS: URINE BARBITURATES SCREEN NEGATIVE; URINE METHADONE SCREEN NEGATIVE; URINE OPIATES LOW NEGATIVE; URINE PHENCYCLIDINE SCREEN NEGATIVE
[2017-02-22] MEDS: NORMAL SALINE 1000 ML 1,000 ML IV PRN ×2 (10:36→21:35)
[2017-02-22 10:58] LABS: GLUCOSE,CSF 68 mg/dL (40-70)
[2017-02-22] MEDS: VANCOMYCIN HCL 500 MG in DEXTROSE 5%-WATER 100 ML IV SCH ×2 (11:11→21:35)
[2017-02-22] MEDS: PIPERACILLIN SODIUM/TAZOBACTAM 3.375 GM in NORMAL SALINE 100 ML IV SCH ×2 (13:27→17:41)
[2017-02-22] MEDS ORDERED: METHYLPREDNISOLONE INJ 40 MG/1 ML SDV IV SCH (14:45)
[2017-02-22] MEDS: ACETAMINOPHEN 325 MG TABLET PO PRN (15:05)
[2017-02-22] MEDS: HEPARIN SOD (PORCINE) 5,000 UNIT/ML 1 ML SYRINGE SUBCUT SCH ×2 (15:06→21:36)
[2017-02-22 16:32] LABS: CREATINE KINASE MB 0.47 ng/mL (<4.55)
[2017-02-22 16:34] LABS: TROPONIN I < 0.012 ng/mL
[2017-02-22] MEDS: DOCUSATE SODIUM 100 MG CAPSULE PO SCH (17:41)
[2017-02-22] MEDS: SENNOSIDES/DOCUSATE 8.6-50 MG 1 EACH TABLET PO SCH (17:42)
[2017-02-22] MEDS ORDERED: ACYCLOVIR SODIUM 750 MG in NORMAL SALINE 250 ML IV SCH (18:00)
[2017-02-22] MEDS: DONEPEZIL HCL 5 MG TABLET PO SCH (21:36)
[2017-02-22] MEDS: BUPROPION HCL 100 MG TABLET PO SCH (21:36)
[2017-02-22] MEDS: TEMAZEPAM 15 MG CAPSULE PO PRN (21:36)
[2017-02-23] MEDS: PIPERACILLIN SODIUM/TAZOBACTAM 3.375 GM in NORMAL SALINE 100 ML IV SCH ×4 (00:22→17:42)
[2017-02-23] MEDS: ACETAMINOPHEN 325 MG TABLET PO PRN (02:02)
[2017-02-23 05:27] LABS: ABSOLUTE EOSINOPHILS # (AUTO) 0.1 10^3/uL (0.0-0.6); ABSOLUTE LYMPHOCYTES (AUTO) 1.1 10^3/uL (0.5-4.7); ABSOLUTE MONOCYTES (AUTO) 0.4 10^3/uL (0.1-1.4); ABSOLUTE NEUT (AUTO) 5.9 10^3/uL (1.7-8.2); BASOPHILS % (AUTO) 0.6 % (0-2); HEMATOCRIT 32.5 % (36.0-47.0); HEMOGLOBIN 11.3 g/dL (12.0-15.5); HGB HCT DIFFERENCE 1.4; LYMPHOCYTES % (AUTO) 15.1 % (13-45); MEAN CORPUSCULAR HEMOGLOBIN 33.2 pg (27.0-33.4); MEAN CORPUSCULAR HGB CONC 34.7 g/dL (32.0-36.0); MEAN CORPUSCULAR VOLUME 96 fl (80-97); RED BLOOD COUNT 3.39 10^6/uL (3.72-5.28); SEGMENTED NEUTROPHILS % (AUTO) 78.3 % (42-78); WHITE BLOOD COUNT 7.6 10^3/uL (4.0-10.5)
[2017-02-23 05:37] LABS: ANION GAP 8 (5-19); BLOOD UREA NITROGEN 6 mg/dL (7-20); CALCIUM 8.5 mg/dL (8.4-10.2); CARBON DIOXIDE 24 mmol/L (22-30); CHLORIDE 108 mmol/L (98-107); CREATININE RESULT 0.49 mg/dL (0.52-1.25); GLUCOSE 118 mg/dL (75-110); MAGNESIUM 1.7 mg/dL (1.6-2.3); PHOSPHORUS 3.1 mg/dL (2.5-4.5); POTASSIUM 3.2 mmol/L (3.6-5.0); SODIUM 139.9 mmol/L (137-145)
[2017-02-23] MEDS: BUPROPION HCL 100 MG TABLET PO SCH ×3 (05:39→21:39)
[2017-02-23] MEDS: HEPARIN SOD (PORCINE) 5,000 UNIT/ML 1 ML SYRINGE SUBCUT SCH ×3 (05:40→21:39)
[2017-02-23 05:44] LABS: PREALBUMIN 9.4 mg/dL (17.6-36.0)
--- NOTE | 2017-02-23 05:55 | RADIOLOGY REPORT (SQ) ---
EXAM DESCRIPTION: CT HEAD WITHOUT COMPLETED DATE/TIME: 02/23/2017 5:24 am REASON FOR STUDY: headache; hypotension; s/p LP, 02/22 COMPARISON: 02/22/2017. TECHNIQUE: Axial images acquired through the brain without intravenous contrast. Images reviewed wi th bone, brain and subdural windows. Images stored on PACS. All CT scanners at this facility use dose modulation, iterative reconstruction, and/or weight based d osing when appropriate to reduce radiation dose to as low as reasonably achievable (ALARA). [facility]: Dose Right [facility]: CareDose [facility]: Dose Right [facility]: Teradose 4D [facility]: Smart [employer] RADIATION DOSE: Up-to-date CT equipment and radiation dose reduction techniques were employed. CTDIv ol: 64.6 mGy. DLP: 1292 mGy-cm. mGy. LIMITATIONS: None. FINDINGS: VENTRICLES: Normal size and contour. CEREBRUM: Mild white matter microangiopathy. Masses. No hemorrhage. No midline shift. Normal mejia /white matter differentiation. No evidence for acute infarction. CEREBELLUM: No masses. No hemorrhage. No alteration of density. No evidence for acute infarction. EXTRAAXIAL SPACES: No fluid collections. No masses. ORBITS AND GLOBE: No intra- or extraconal masses. Normal contour of globe without masses. CALVARIUM: No fracture. PARANASAL SINUSES: No fluid or mucosal thickening. SOFT TISSUES: No mass or hematoma. OTHER: Pontine lacunar infarct pattern is stable. IMPRESSION: No acute findings. TECHNICAL DOCUMENTATION: JOB ID: [id number] Quality ID # [id number]: Final reports with documentation of one or more dose reduction techniques (e.g., Au tomated exposure control, adjustment of the mA and/or kV according to patient size, use of iterative reconstruction technique) 2010 [employer]- All Rights Reserved
--- NOTE | 2017-02-23 07:05 | RADIOLOGY REPORT (SQ) ---
EXAM DESCRIPTION: CHEST SINGLE VIEW COMPLETED DATE/TIME: 02/23/2017 5:32 am REASON FOR STUDY: septic shock COMPARISON: 02/21/2017. 12/12/2016. EXAM PARAMETERS: NUMBER OF VIEWS: One view. TECHNIQUE: Single frontal radiographic view of the chest acquired. RADIATION DOSE: NA LIMITATIONS: None. FINDINGS: LUNGS AND PLEURA: Mild interstitial markings, chronic. MEDIASTINUM AND HILAR STRUCTURES: No masses. Contour normal. HEART AND VASCULAR STRUCTURES: Heart normal in size. Normal vasculature. BONES: No acute findings. HARDWARE: None in the chest. OTHER: Bilateral mammary prostheses. IMPRESSION: No acute cardiopulmonary findings. TECHNICAL DOCUMENTATION: JOB ID: [id number]
[2017-02-23] MEDS ORDERED: POTASSIUM CHLORIDE 10 MEQ TABLET.SA PO ONE (07:50)
[2017-02-23] MEDS ORDERED: ACETAMINOPHEN 325 MG TABLET PO PRN (08:00)
[2017-02-23] MEDS ORDERED: MAGNESIUM HYDROXIDE SUSP 30 ML UDCUP PO PRN (08:00)
[2017-02-23] MEDS: MAGNESIUM SULFATE/D5W 1 GM/100 ML RTUPB IV SCH ×2 (09:24→11:33)
[2017-02-23] MEDS: DOCUSATE SODIUM 100 MG CAPSULE PO SCH ×2 (09:25→17:42)
[2017-02-23] MEDS: MULTIVITAMINS W-IRON TABLET, CHEWABLE PO SCH (09:25)
[2017-02-23] MEDS: EZETIMIBE 10 MG TABLET PO SCH (09:25)
[2017-02-23] MEDS: ARIPIPRAZOLE 2 MG TABLET PO SCH (09:26)
[2017-02-23] MEDS: NORMAL SALINE 1000 ML 1,000 ML IV PRN ×2 (09:27→21:46)
[2017-02-23] MEDS: MEGESTROL ACETATE SUSP 400 MG/10 ML UDCUP PO SCH (09:53)
[2017-02-23] MEDS: SENNOSIDES/DOCUSATE 8.6-50 MG 1 EACH TABLET PO SCH ×3 (10:00→21:41)
[2017-02-23] MEDS ORDERED: (PENDING PHARMACY ID) (Memantine Hcl [Namenda Xr] 14 MG) PO SCH (10:00)
[2017-02-23] MEDS ORDERED: NICOTINE 14 MG/24 HR PATCH.TD24 TD SCH (10:00)
[2017-02-23 10:39] LABS: CREATININE RESULT 0.58 mg/dL (0.52-1.25)
[2017-02-23] MEDS: VANCOMYCIN HCL 500 MG in DEXTROSE 5%-WATER 100 ML IV SCH (11:23)
[2017-02-23] MEDS ORDERED: FUROSEMIDE INJ/PF 40 MG/4 ML SDV IV ONE (13:00)
--- NOTE | 2017-02-23 14:54 | RADIOLOGY REPORT (SQ) ---
EXAM DESCRIPTION: CHEST PA/LAT COMPLETED DATE/TIME: 02/23/2017 2:43 pm REASON FOR STUDY: ?RLL pna COMPARISON: None. EXAM PARAMETERS: NUMBER OF VIEWS: two views TECHNIQUE: Digital Frontal and Lateral radiographic views of the chest acquired. RADIATION DOSE: NA LIMITATIONS: Breast implants. FINDINGS: LUNGS AND PLEURA: Poorly marginated increased density overlying posterior mid chest seen o n lateral view only. Uncertain if this is a pleural lesion or bone etiology. MEDIASTINUM AND HILAR STRUCTURES: No masses or contour abnormalities. HEART AND VASCULAR STRUCTURES: Heart normal size. No evidence for failure. BONES: No acute findings. HARDWARE: None in the chest. OTHER: No other significant finding. IMPRESSION: Possible pleural mass. Consider noncontrast chest CT TECHNICAL DOCUMENTATION: JOB ID: [id number] [employer]- All Rights Reserved
[2017-02-23 15:59] LABS: ANION GAP 9 (5-19); BLOOD UREA NITROGEN 7 mg/dL (7-20); CALCIUM 9.5 mg/dL (8.4-10.2); CARBON DIOXIDE 25 mmol/L (22-30); CHLORIDE 107 mmol/L (98-107); CREATININE RESULT 0.59 mg/dL (0.52-1.25); GLUCOSE 125 mg/dL (75-110); POTASSIUM 3.7 mmol/L (3.6-5.0); SODIUM 140.8 mmol/L (137-145)
--- NOTE | 2017-02-23 16:00 | PDOC PROGRESS REPORT ---
Subjective Progress Note for:: 02/23/17 Subjective:: Patient had an increase in headache overnight and had a repeat CT which was negative. Patient reports complete resolution of her headache this morning. She reports she is feeling significantly better. Patient does remind me that she has dementia. Patient denies chest pain, shortness of breath, abdominal pain, nausea, vomiting, fevers, chills, diarrhea, constipation, headache, new onset weakness. Physical Exam Vital Signs: Temp Pulse Resp BP Pulse Ox 98.6 F 52 L 20 95/61 L 96 02/23/17 06:20 02/22/17 19:54 02/23/17 06:20 02/23/17 06:20 02/23/17 06:20 Intake & Output 02/22/17 02/23/17 02/24/17 06:59 06:59 06:59 Intake Total 2832 Output Total 6330 Balance -3533 Weight 49.9 kg Exam: General: Awake alert and orientedx3, no acute respiratory distress HEENT: AT/NC, PERRL, EOMI, oropharynx is moist, pink, no scleral icterus, no conjunctival injection Neck: No JVD, trachea midline Chest: LLL crackles CV: Regular rate and rhythm, normal S1 and S2, no murmur, rub, or gallop Abdomen: Soft, nontender to palpation, nondistended, active bowel sounds; no rebound, rigidity, or guarding Extremities: No cyanosis, clubbing or edema Neuro: Cranial nerves II through XII are grossly intact without focal deficits; awake alert and oriented x3 Psych: Normal mood and affect Results Laboratory Results: 02/23/17 05:05 02/23/17 05:05 02/22/17 02/22/17 02/22/17 07:56 07:56 07:56 WBC 6.7 RBC 3.65 L Hgb 12.1 Hct 35.0 L MCV 96 MCH 33.0 MCHC 34.4 RDW 12.8 Plt Count 188 Seg Neutrophils % 87.4 H Lymphocytes % 9.1 L Monocytes % 2.8 L Eosinophils % 0.2 Basophils % 0.5 Absolute Neutrophils 5.8 Absolute Lymphocytes 0.6 Absolute Monocytes 0.2 Absolute Eosinophils 0.0 Absolute Basophils 0.0 Sodium 144.4 Potassium 4.0 Chloride 114 H Carbon Dioxide 21 L Anion Gap 9 BUN 13 Creatinine 0.59 Est GFR ( Amer) > 60 Est GFR (Non-Af Amer) > 60 Glucose 117 H Calcium 9.0 Phosphorus Magnesium Prealbumin Vitamin B12 703.0 Fluid Tube Number CSF Volume CSF Appearance CSF Color CSF WBC CSF RBC CSF Comment CSF Glucose CSF Total Protein 02/22/17 02/22/17 02/22/17 07:56 09:09 09:09 WBC RBC Hgb Hct MCV MCH MCHC RDW Plt Count Seg Neutrophils % Lymphocytes % Monocytes % Eosinophils % Basophils % Absolute Neutrophils Absolute Lymphocytes Absolute Monocytes Absolute Eosinophils Absolute Basophils Sodium Potassium Chloride Carbon Dioxide Anion Gap BUN Creatinine Est GFR ( Amer) Est GFR (Non-Af Amer) Glucose Calcium Phosphorus Magnesium 2.0 Prealbumin Vitamin B12 Fluid Tube Number 3 CSF Volume 8.0 CSF Appearance CLEAR CSF Color COLORLESS CSF WBC 4 CSF RBC 0 CSF Comment CSF CULTURE ORDERED CSF Glucose CSF Total Protein 02/22/17 02/23/17 02/23/17 09:09 05:05 05:05 WBC 7.6 RBC 3.39 L Hgb 11.3 L Hct 32.5 L MCV 96 MCH 33.2 MCHC 34.7 RDW 13.0 Plt Count 175 Seg Neutrophils % 78.3 H Lymphocytes % 15.1 Monocytes % 5.0 Eosinophils % 1.0 Basophils % 0.6 Absolute Neutrophils 5.9 Absolute Lymphocytes 1.1 Absolute Monocytes 0.4 Absolute Eosinophils 0.1 Absolute Basophils 0.0 Sodium 139.9 Potassium 3.2 L Chloride 108 H Carbon Dioxide 24 Anion Gap 8 BUN 6 L Creatinine 0.49 L Est GFR ( Amer) > 60 Est GFR (Non-Af Amer) > 60 Glucose 118 H Calcium 8.5 Phosphorus 3.1 Magnesium 1.7 Prealbumin 9.4 L Vitamin B12 Fluid Tube Number CSF Volume CSF Appearance CSF Color CSF WBC CSF RBC CSF Comment CSF Glucose 68 CSF Total Protein 54 02/22/17 02/22/17 15:30 15:30 Creatine Kinase 195 H CK-MB (CK-2) 0.47 Troponin I < 0.012 Impressions: Lumbar Puncture 02/22/17 08:09 IMPRESSION: Lumbar puncture under fluoroscopy. No immediate complication. Fluid sent for testing as per hospitalist physician Head CT 02/23/17 00:00 IMPRESSION: No acute findings. Chest X-Ray 02/23/17 06:00 IMPRESSION: No acute cardiopulmonary findings. Assessment & Plan - Diagnosis (1) Septic shock Is this a current diagnosis for this admission?: Yes Plan: Patient is nearly weaned entirely off of dopamine. Continue vancomycin and Zosyn pending cultures. Patient's CSF was unremarkable and directed Liz panel was negative. Repeat chest x-ray reveals no developing pneumonia. Cultures and urine culture currently negative. Concern for underlying adrenal insufficiency and will perform cosynatropin stim test. (2) Sepsis Qualifiers: Sepsis type: sepsis due to unspecified organism Qualified Code(s): A41.9 - Sepsis, unspecified organism Is this a current diagnosis for this admission?: Yes (3) UTI (urinary tract infection) Qualifiers: Urinary tract infection type: site unspecified Is this a current diagnosis for this admission?: Yes Plan: Patient was reportedly being treated for a UTI as an outpatient. We are pending these records. Continue patient on vancomycin and Zosyn pending cultures. Currently urine is microscopically unimpressive. (4) Dementia Qualifiers: Dementia type: unspecified type Dementia behavioral disturbance: without behavioral disturbance Qualified Code(s): F03.90 - Unspecified dementia without behavioral disturbance Is this a current diagnosis for this admission?: Yes Plan: Continue home medications & supportive care. Generic Name Dose Route Start Last Admin Trade Name Freq PRN Reason Stop Dose Admin Donepezil HCl 5 mg 02/22/17 22:00 02/22/17 21:36 Aricept 5 Mg Tablet PO 03/24/17 21:59 5 mg QHS ROYCE Patient Own Medication 14 mg 02/23/17 10:00 Memantine Hcl [Namenda Xr] PO 03/25/17 09:59 DAILY ROYCE (5) HLD (hyperlipidemia) Qualifiers: Hyperlipidemia type: unspecified Qualified Code(s): E78.5 - Hyperlipidemia , unspecified Is this a current diagnosis for this admission?: Yes (6) Protein-calorie malnutrition, mild Is this a current diagnosis for this admission?: Yes Plan: Consult dietary add Ensure 3 times daily - Time Time Spent with patient: 25-34 minutes Medications reviewed and adjusted accordingly: Yes Anticipated discharge: Home Within: within 48 hours, within 72 hours - Inpatient Certification Based on my medical assessment, after consideration of the patient's comorbidities, presenting symptoms, or acuity I expect that the services needed warrant INPATIENT care.: Yes I certify that my determination is in accordance with my understanding of Medicare's requirements for reasonable and necessary INPATIENT services [42 CFR 412.3e].: Yes Medical Necessity: Need For IV Fluids, Need for IV Antibiotics Post Hospital Care: D/C Promotions Intern Documentation
[2017-02-23 21:08] LABS: HSV I DNA Negative (Negative)
[2017-02-23] MEDS: DONEPEZIL HCL 5 MG TABLET PO SCH (21:38)
[2017-02-23] MEDS: TEMAZEPAM 15 MG CAPSULE PO PRN (21:43)
[2017-02-23] MEDS: ALBUMIN HUMAN 50 ML IV SCH ×2 (22:00→23:35)
[2017-02-23] MEDS: VANCOMYCIN HCL 750 MG in DEXTROSE 5%-WATER 250 ML IV SCH (22:43)
[2017-02-24] MEDS: PIPERACILLIN SODIUM/TAZOBACTAM 3.375 GM in NORMAL SALINE 100 ML IV SCH ×5 (00:54→23:21)
[2017-02-24] MEDS: ALBUMIN HUMAN 50 ML IV SCH ×2 (02:00→04:10)
[2017-02-24] MEDS ORDERED: COSYNTROPIN INJ 0.25 MG VIAL IV ONE (05:20)
[2017-02-24] MEDS: BUPROPION HCL 100 MG TABLET PO SCH ×3 (05:38→22:37)
[2017-02-24] MEDS: HEPARIN SOD (PORCINE) 5,000 UNIT/ML 1 ML SYRINGE SUBCUT SCH ×3 (05:41→22:02)
[2017-02-24] MEDS: NORMAL SALINE 1000 ML 1,000 ML IV PRN ×2 (09:01→23:21)
[2017-02-24] MEDS: ARIPIPRAZOLE 2 MG TABLET PO SCH (09:04)
[2017-02-24] MEDS: MULTIVITAMINS W-IRON TABLET, CHEWABLE PO SCH (09:04)
[2017-02-24] MEDS: MEGESTROL ACETATE SUSP 400 MG/10 ML UDCUP PO SCH (09:05)
[2017-02-24] MEDS: EZETIMIBE 10 MG TABLET PO SCH (09:05)
[2017-02-24] MEDS: DOCUSATE SODIUM 100 MG CAPSULE PO SCH ×2 (09:06→18:43)
[2017-02-24] MEDS: VANCOMYCIN HCL 750 MG in DEXTROSE 5%-WATER 250 ML IV SCH (09:32)
--- NOTE | 2017-02-24 14:24 | PDOC PROGRESS REPORT ---
Subjective Progress Note for:: 02/24/17 Subjective:: She reports she did not sleep well last night and that she had a headache last evening that did resolve this morning. She reports she is currently without pain. Patient reports she is feeling significantly better today. Patient denies chest pain, shortness of breath, abdominal pain, nausea, vomiting , fevers, chills, diarrhea, constipation, new onset weakness. Physical Exam Vital Signs: Temp Pulse Resp BP Pulse Ox 97.8 F 58 L 13 121/61 99 02/24/17 04:47 02/24/17 04:47 02/24/17 04:47 02/24/17 04:47 02/24/17 04:47 Intake & Output 02/23/17 02/24/17 02/25/17 06:59 06:59 06:59 Intake Total 2832 2106 Output Total 6365 1200 Balance -3533 906 Weight 49.9 kg 51.5 kg Exam: General: Chronically ill-appearing, awake alert and oriented x3, no acute respiratory distress HEENT: AT/NC, PERRL, EOMI, oropharynx is moist, pink, no scleral icterus, no conjunctival injection Neck: No JVD, trachea midline Chest: Clear to auscultation bilaterally CV: Regular rate and rhythm, normal S1 and S2, no murmur, rub, or gallop Abdomen: Soft, nontender to palpation, nondistended, active bowel sounds; no rebound, rigidity, or guarding Extremities: No cyanosis, clubbing or edema Neuro: Cranial nerves II through XII are grossly intact without focal deficits; awake alert and oriented x3 Psych: Normal mood and affect Results Laboratory Results: 02/23/17 05:05 02/23/17 15:38 02/23/17 02/23/17 02/23/17 05:05 10:11 15:38 Sodium 140.8 Potassium 3.7 Chloride 107 Carbon Dioxide 25 Anion Gap 9 BUN 7 Creatinine 0.58 0.59 Est GFR ( Amer) > 60 > 60 Est GFR (Non-Af Amer) > 60 > 60 Glucose 125 H Calcium 9.5 TSH 0.40 L Free T4 02/23/17 15:38 Sodium Potassium Chloride Carbon Dioxide Anion Gap BUN Creatinine Est GFR ( Amer) Est GFR (Non-Af Amer) Glucose Calcium TSH Free T4 1.57 02/22/17 09:09 Cerebral Spinal Fluid - Csf AFB Smear Concentration - Final 02/22/17 09:09 Cerebral Spinal Fluid - Csf Acid Fast Bacilli Smear - Final 02/22/17 02/22/17 15:30 15:30 Creatine Kinase 195 H CK-MB (CK-2) 0.47 Troponin I < 0.012 Impressions: Lumbar Puncture 02/22/17 08:09 IMPRESSION: Lumbar puncture under fluoroscopy. No immediate complication. Fluid sent for testing as per hospitalist physician Head CT 02/23/17 00:00 IMPRESSION: No acute findings. Chest X-Ray 02/23/17 06:00 IMPRESSION: No acute cardiopulmonary findings. Assessment & Plan - Diagnosis (1) Septic shock Is this a current diagnosis for this admission?: Yes Plan: Patient is nearly weaned entirely off of dopamine. Plan to finish weaning today. Patient responded well to albumin. Stop vancomycin. On Zosyn day #2 pending cultures. Patient's CSF was unremarkable and directigen panel was negative. Repeat chest x-ray reveals no developing pneumonia. Cultures and urine culture currently negative. Cosyntropin stim test effectively rules out primary and secondary adrenal insufficiency, but do have concerns about patient's overall low morning cortisol test in addition to low TSH with normal thyroid function. (2) Sepsis Qualifiers: Sepsis type: sepsis due to unspecified organism Qualified Code(s): A41.9 - Sepsis, unspecified organism Is this a current diagnosis for this admission?: Yes Plan: Currently pending cultures and unsure of source although patient is being treated as an outpatient for urinary tract infection and we are pending this culture and sensitivity. (3) UTI (urinary tract infection) Qualifiers: Urinary tract infection type: site unspecified Is this a current diagnosis for this admission?: Yes Plan: Patient was reportedly being treated for a UTI as an outpatient. We are pending these records. Patient on Zosyn pending cultures. Currently urine is microscopically unimpressive. (4) Dementia Qualifiers: Dementia type: unspecified type Dementia behavioral disturbance: without behavioral disturbance Qualified Code(s): F03.90 - Unspecified dementia without behavioral disturbance Is this a current diagnosis for this admission?: Yes Plan: Continue home medications & supportive care. (5) HLD (hyperlipidemia) Qualifiers: Hyperlipidemia type: unspecified Qualified Code(s): E78.5 - Hyperlipidemia , unspecified Is this a current diagnosis for this admission?: Yes (6) Protein-calorie malnutrition, mild Is this a current diagnosis for this admission?: Yes Plan: Consult dietary add Magic cup 3 times daily - Time Time Spent with patient: 25-34 minutes Medications reviewed and adjusted accordingly: Yes Anticipated discharge: Home Within: within 48 hours
[2017-02-24] MEDS: SENNOSIDES/DOCUSATE 8.6-50 MG 1 EACH TABLET PO SCH (21:48)
[2017-02-24] MEDS: DONEPEZIL HCL 5 MG TABLET PO SCH (22:37)
[2017-02-25] MEDS: PIPERACILLIN SODIUM/TAZOBACTAM 3.375 GM in NORMAL SALINE 100 ML IV SCH ×3 (05:07→18:40)
[2017-02-25] MEDS: BUPROPION HCL 100 MG TABLET PO SCH ×3 (05:07→21:57)
[2017-02-25] MEDS: HEPARIN SOD (PORCINE) 5,000 UNIT/ML 1 ML SYRINGE SUBCUT SCH ×3 (05:08→21:57)
[2017-02-25] MEDS: PROMETHAZINE HCL 25 MG TABLET PO PRN (07:17)
[2017-02-25] MEDS: EZETIMIBE 10 MG TABLET PO SCH (09:28)
[2017-02-25] MEDS: ARIPIPRAZOLE 2 MG TABLET PO SCH (09:29)
[2017-02-25] MEDS: MEGESTROL ACETATE SUSP 400 MG/10 ML UDCUP PO SCH (09:29)
[2017-02-25] MEDS: MULTIVITAMINS W-IRON TABLET, CHEWABLE PO SCH (09:29)
[2017-02-25] MEDS: DOCUSATE SODIUM 100 MG CAPSULE PO SCH ×2 (09:30→18:36)
--- NOTE | 2017-02-25 11:26 | PDOC PROGRESS REPORT ---
Subjective Progress Note for:: 02/25/17 Subjective:: She was seen this morning eating breakfast. Patient stated that she was doing well. Received call later during the morning stating the patient was very agitated and trying to get up out of bed. Nurse is requesting for sitter. Physical Exam Vital Signs: Temp Pulse Resp BP Pulse Ox 97.9 F 77 18 154/89 H 100 02/25/17 07:08 02/25/17 07:08 02/25/17 07:08 02/25/17 07:08 02/25/17 07:08 Intake & Output 02/24/17 02/25/17 02/26/17 06:59 06:59 06:59 Intake Total 2106 2180 Output Total 1200 300 Balance 906 1880 Weight 51.5 kg 50.4 kg General appearance: PRESENT: cooperative, thin Exam: Positive for temporal wasting Head exam: PRESENT: atraumatic, normocephalic Eye exam: PRESENT: conjunctiva pink, EOMI. ABSENT: scleral icterus Ear exam: PRESENT: normal external ear exam Mouth exam: PRESENT: moist, tongue midline Neck exam: ABSENT: carotid bruit, JVD, lymphadenopathy, thyromegaly Respiratory exam: PRESENT: clear to auscultation amado. ABSENT: rales, rhonchi, wheezes Cardiovascular exam: PRESENT: bradycardia Pulses: PRESENT: normal dorsalis pedis pul Vascular exam: PRESENT: normal capillary refill GI/Abdominal exam: PRESENT: normal bowel sounds, soft. ABSENT: distended, guarding, mass, organolmegaly, rebound, tenderness Rectal exam: PRESENT: deferred Extremities exam: PRESENT: full ROM, other - Patient with significant muscle wasting of lower extremities. ABSENT: calf tenderness, clubbing, pedal edema Neurological exam: PRESENT: alert, awake, oriented to person, CN II-XII grossly intact Psychiatric exam: PRESENT: anxious, flat affect Skin exam: PRESENT: dry, warm Results Laboratory Results: 02/23/17 05:05 02/23/17 15:38 02/22/17 09:09 Cerebral Spinal Fluid - Csf Gram Stain - Final 02/22/17 09:09 Cerebral Spinal Fluid - Csf CSF Culture - Final NO GROWTH 3 DAYS 02/22/17 02/22/17 15:30 15:30 Creatine Kinase 195 H CK-MB (CK-2) 0.47 Troponin I < 0.012 Impressions: Lumbar Puncture 02/22/17 08:09 IMPRESSION: Lumbar puncture under fluoroscopy. No immediate complication. Fluid sent for testing as per hospitalist physician Head CT 02/23/17 00:00 IMPRESSION: No acute findings. Chest X-Ray 02/23/17 06:00 IMPRESSION: No acute cardiopulmonary findings. Assessment & Plan - Diagnosis (1) Septic shock Is this a current diagnosis for this admission?: Yes Plan: Suspect infection: Patient currently on Zosyn and doing well. Anticipate 4/ 7 days of IV antibiotics. (2) Sepsis Qualifiers: Sepsis type: sepsis due to unspecified organism Qualified Code(s): A41.9 - Sepsis, unspecified organism Is this a current diagnosis for this admission?: Yes Plan: Suspect infection: We will continue Zosyn. Plan to treat patient for 7 days total with IV antibiotics. Patient currently day 4 of 7 (3) UTI (urinary tract infection) Qualifiers: Urinary tract infection type: site unspecified Is this a current diagnosis for this admission?: Yes Plan: Suspect source of sepsis: We will continue to treat with Zosyn. Patient currently day 4 of 7 days of treatment (4) Hypotension Qualifiers: Hypotension type: unspecified hypotension type Qualified Code(s): I95.9 - Hypotension, unspecified Is this a current diagnosis for this admission?: Yes Plan: In setting of sepsis: Resolved patient's blood pressure is running in the 140s- 150s. Initially there was concern for adrenal insufficiency however with patient's vital signs and lab findings feel that patient's presentation was secondary to sepsis. She currently not on steroids. Will discontinue IV fluids (5) Protein-calorie malnutrition, mild Is this a current diagnosis for this admission?: Yes Plan: We will encourage good p.o. intake with supplemental drinks. (6) Dementia Qualifiers: Dementia type: unspecified type Dementia behavioral disturbance: without behavioral disturbance Qualified Code(s): F03.90 - Unspecified dementia without behavioral disturbance Is this a current diagnosis for this admission?: Yes Plan: We will continue Namenda. Will order for a sitter - Time Time Spent with patient: 15-24 minutes
[2017-02-25 12:50] LABS: HSV SOURCE CSF
[2017-02-25] MEDS: DONEPEZIL HCL 5 MG TABLET PO SCH (21:57)
[2017-02-25] MEDS: SENNOSIDES/DOCUSATE 8.6-50 MG 1 EACH TABLET PO SCH (21:59)
[2017-02-26] MEDS: PIPERACILLIN SODIUM/TAZOBACTAM 3.375 GM in NORMAL SALINE 100 ML IV SCH ×5 (00:48→23:40)
[2017-02-26] MEDS: HEPARIN SOD (PORCINE) 5,000 UNIT/ML 1 ML SYRINGE SUBCUT SCH ×3 (06:12→22:09)
[2017-02-26] MEDS: BUPROPION HCL 100 MG TABLET PO SCH ×3 (06:12→22:07)
[2017-02-26] MEDS: PROMETHAZINE HCL 25 MG TABLET PO PRN (09:50)
[2017-02-26] MEDS: MEGESTROL ACETATE SUSP 400 MG/10 ML UDCUP PO SCH (09:51)
[2017-02-26] MEDS: EZETIMIBE 10 MG TABLET PO SCH (09:51)
[2017-02-26] MEDS: MULTIVITAMINS W-IRON TABLET, CHEWABLE PO SCH (09:52)
[2017-02-26] MEDS: ARIPIPRAZOLE 2 MG TABLET PO SCH (09:52)
[2017-02-26] MEDS: DOCUSATE SODIUM 100 MG CAPSULE PO SCH ×2 (09:55→17:40)
--- NOTE | 2017-02-26 10:24 | PDOC PROGRESS REPORT ---
Subjective Progress Note for:: 02/26/17 Subjective:: Pt states that she is doing pretty good this morning. Pt states that she got too much food for breakfast. Nursing states that pt has been doing ok. Physical Exam Vital Signs: Temp Pulse Resp BP Pulse Ox 98.8 F 63 18 125/63 100 02/26/17 07:04 02/26/17 07:04 02/26/17 07:04 02/26/17 07:04 02/26/17 07:04 Intake & Output 02/25/17 02/26/17 02/27/17 06:59 06:59 06:59 Intake Total 2180 2140 Output Total 300 Balance 1880 2140 Weight 50.4 kg 47 kg General appearance: PRESENT: no acute distress, cooperative, thin, other - Temporal Wasting. Head exam: PRESENT: atraumatic, normocephalic Eye exam: PRESENT: conjunctiva pink, EOMI Ear exam: PRESENT: normal external ear exam Mouth exam: PRESENT: moist, tongue midline Neck exam: ABSENT: carotid bruit, JVD, lymphadenopathy, thyromegaly Respiratory exam: PRESENT: clear to auscultation amado. ABSENT: rales, rhonchi, wheezes Cardiovascular exam: PRESENT: RRR. ABSENT: diastolic murmur, rubs, systolic murmur Pulses: PRESENT: normal carotid pulses GI/Abdominal exam: PRESENT: normal bowel sounds, soft. ABSENT: distended, guarding, mass, organolmegaly, rebound, tenderness Rectal exam: PRESENT: deferred Extremities exam: PRESENT: full ROM, other - + muscle wasting of lower and upper ext.. ABSENT: calf tenderness, clubbing, pedal edema Neurological exam: PRESENT: alert, awake, oriented to person, CN II-XII grossly intact Psychiatric exam: PRESENT: appropriate affect, normal mood. ABSENT: homicidal ideation, suicidal ideation Skin exam: PRESENT: dry, intact, warm. ABSENT: cyanosis, rash Results Laboratory Results: 02/23/17 05:05 02/23/17 15:38 02/22/17 09:09 Cerebral Spinal Fluid - Csf Gram Stain - Final 02/22/17 09:09 Cerebral Spinal Fluid - Csf CSF Culture - Final NO GROWTH 3 DAYS 02/22/17 02/22/17 15:30 15:30 Creatine Kinase 195 H CK-MB (CK-2) 0.47 Troponin I < 0.012 Impressions: Lumbar Puncture 02/22/17 08:09 IMPRESSION: Lumbar puncture under fluoroscopy. No immediate complication. Fluid sent for testing as per hospitalist physician Head CT 02/23/17 00:00 IMPRESSION: No acute findings. Chest X-Ray 02/23/17 06:00 IMPRESSION: No acute cardiopulmonary findings. Assessment & Plan - Diagnosis (1) Septic shock Is this a current diagnosis for this admission?: Yes Plan: Suspect infection: Patient currently on Zosyn and doing well. Anticipate 5/ 7 days of IV antibiotics. (2) Sepsis Qualifiers: Sepsis type: sepsis due to unspecified organism Qualified Code(s): A41.9 - Sepsis, unspecified organism Is this a current diagnosis for this admission?: Yes Plan: Suspect infection: We will continue Zosyn. Plan to treat patient for 7 days total with IV antibiotics. Patient currently day 5 of 7 (3) UTI (urinary tract infection) Qualifiers: Urinary tract infection type: site unspecified Is this a current diagnosis for this admission?: Yes Plan: Suspect source of sepsis: We will continue to treat with Zosyn. Patient currently day 5 of 7 days of treatment (4) Hypotension Qualifiers: Hypotension type: unspecified hypotension type Qualified Code(s): I95.9 - Hypotension, unspecified Is this a current diagnosis for this admission?: Yes Plan: In setting of sepsis: Resolved patient's blood pressure is running in the 140s- 150s. Initially there was concern for adrenal insufficiency however with patient's vital signs and lab findings feel that patient's presentation was secondary to sepsis. She currently not on steroids. Will discontinue IV fluids (5) Protein-calorie malnutrition, mild Is this a current diagnosis for this admission?: Yes Plan: We will encourage good p.o. intake with supplemental drinks. Will continue megace. (6) Dementia Qualifiers: Dementia type: unspecified type Dementia behavioral disturbance: without behavioral disturbance Qualified Code(s): F03.90 - Unspecified dementia without behavioral disturbance Is this a current diagnosis for this admission?: Yes Plan: We will continue Namenda with sitter today. - Time Time Spent with patient: 15-24 minutes
[2017-02-26] MEDS: DONEPEZIL HCL 5 MG TABLET PO SCH (22:07)
[2017-02-26] MEDS: SENNOSIDES/DOCUSATE 8.6-50 MG 1 EACH TABLET PO SCH (22:09)
[2017-02-27 04:49] LABS: ABSOLUTE BASOPHILS # (AUTO) 0.1 10^3/uL (0.0-0.2); ABSOLUTE EOSINOPHILS # (AUTO) 0.2 10^3/uL (0.0-0.6); ABSOLUTE MONOCYTES (AUTO) 0.6 10^3/uL (0.1-1.4); ABSOLUTE NEUT (AUTO) 4.9 10^3/uL (1.7-8.2); BASOPHILS % (AUTO) 0.7 % (0-2); EOSINOPHILS % (AUTO) 2.3 % (0-6); HEMATOCRIT 29.6 % (36.0-47.0); HEMOGLOBIN 10.3 g/dL (12.0-15.5); HGB HCT DIFFERENCE 1.3; LYMPHOCYTES % (AUTO) 25.9 % (13-45); MEAN CORPUSCULAR HEMOGLOBIN 33.5 pg (27.0-33.4); MEAN CORPUSCULAR HGB CONC 34.7 g/dL (32.0-36.0); MEAN CORPUSCULAR VOLUME 96 fl (80-97); MONOCYTES % (AUTO) 7.6 % (3-13); RED BLOOD COUNT 3.07 10^6/uL (3.72-5.28); RED CELL DISTRIBUTION WIDTH 13.3 % (11.5-14.0); SEGMENTED NEUTROPHILS % (AUTO) 63.5 % (42-78); WHITE BLOOD COUNT 7.8 10^3/uL (4.0-10.5)
[2017-02-27 05:03] LABS: ALANINE AMINOTRANSFERASE 28 U/L (9-52); ALBUMIN 3.4 g/dL (3.5-5.0); ALKALINE PHOSPHATASE 64 U/L (38-126); ANION GAP 9 (5-19); ASPARTATE AMINO TRANSFERASE 27 U/L (14-36); BILIRUBIN,DIRECT 0.3 mg/dL (0.0-0.4); BILIRUBIN,TOTAL 0.6 mg/dL (0.2-1.3); BLOOD UREA NITROGEN 16 mg/dL (7-20); CALCIUM 9.6 mg/dL (8.4-10.2); CARBON DIOXIDE 24 mmol/L (22-30); CHLORIDE 110 mmol/L (98-107); GLUCOSE 90 mg/dL (75-110); SODIUM 143.1 mmol/L (137-145); TOTAL PROTEIN 5.6 g/dL (6.3-8.2)
[2017-02-27 05:16] LABS: POTASSIUM 3.1 mmol/L (3.6-5.0)
[2017-02-27] MEDS: PIPERACILLIN SODIUM/TAZOBACTAM 3.375 GM in NORMAL SALINE 100 ML IV SCH ×2 (06:18→12:43)
[2017-02-27] MEDS: HEPARIN SOD (PORCINE) 5,000 UNIT/ML 1 ML SYRINGE SUBCUT SCH ×2 (06:18→13:58)
[2017-02-27] MEDS: BUPROPION HCL 100 MG TABLET PO SCH ×2 (06:18→13:58)
[2017-02-27] MEDS ORDERED: POTASSIUM CHLORIDE 10 MEQ TABLET.SA PO ONE ×2 (07:16→08:00)
[2017-02-27] MEDS: DOCUSATE SODIUM 100 MG CAPSULE PO SCH (10:33)
[2017-02-27] MEDS: EZETIMIBE 10 MG TABLET PO SCH (10:34)
[2017-02-27] MEDS: MULTIVITAMINS W-IRON TABLET, CHEWABLE PO SCH (10:34)
[2017-02-27] MEDS: ARIPIPRAZOLE 2 MG TABLET PO SCH (10:34)
[2017-02-27] MEDS: MEGESTROL ACETATE SUSP 400 MG/10 ML UDCUP PO SCH (10:35)
--- NOTE | 2017-02-27 13:20 | PDOC DISCHARGE SUMMARY ---
General - Admit/Disc Date/PCP Admission Date/Primary Care Provider: 02/22/17 07:19 DEVIKA LONGO MD Discharge Date: 02/27/17 - Discharge Diagnosis (1) Septic shock Is this a current diagnosis for this admission?: Yes (2) Sepsis Is this a current diagnosis for this admission?: Yes (3) UTI (urinary tract infection) Is this a current diagnosis for this admission?: Yes (4) Dementia Is this a current diagnosis for this admission?: Yes (5) HLD (hyperlipidemia) Is this a current diagnosis for this admission?: Yes (6) Protein-calorie malnutrition, mild Is this a current diagnosis for this admission?: Yes - Additional Information Resuscitation Status: Full Code Discharge Diet: Regular Discharge Activity: Activity As Tolerated, Slowly Increase Activity, Supervised Activity Home Medications: Aripiprazole [Abilify 2 mg Tablet] 4 mg PO DAILY 02/22/17 Bupropion HCl [Wellbutrin Xl 300mg 24hr Tablet] 30 mg PO QAM 02/22/17 Donepezil HCl [Aricept 5 mg Tablet] 5 mg PO QHS 02/22/17 Ezetimibe [Zetia 10 mg Tablet] 10 mg PO DAILY 02/22/17 Memantine HCl [Namenda Xr] 14 mg PO DAILY 02/22/17 Nitroglycerin [Nitrostat] 0.4 mg SL Q5MP PRN 02/22/17 Ondansetron HCl [Zofran 4 mg Tablet] 8 mg PO BIDP PRN 02/22/17 Simvastatin [Zocor 10 mg Tablet] 10 mg PO DAILY 02/22/17 Temazepam [Restoril 15 mg Capsule] 15 mg PO HSP PRN 02/22/17 Levofloxacin [Levaquin 500 mg Tablet] 500 mg PO DAILY #3 tablet 02/27/17 Megestrol Acetate [Megace Izabel 400 mg/10 ml Udcup] 400 mg PO DAILY #30 udc 02/27 Multivitamins W-Iron [Flintstones Chewable Multivit W/Fe Tab] 2 tab PO DAILY tab.chew 02/27/17 History of Present Illness History of Present Illness: Please see H&P for full HPI Hospital Course Hospital Course: Patient is a 71-year-old female who presented to the emergency department with leg shaking. Patient was seen by her primary care provider and had started an oral antibiotic for a urinary tract infection. On the evening of the patient began having fevers, lower back pain, lower extremity pain and shaking. Patient then developed a headache. Patient was noted to be hypotensive which was poorly responsive to fluid. Patient was initially started on Levophed but this was discontinued due to bradycardia and patient was started on dopamine. Patient was placed in the ICU and gradually weaned off of pressors. Patient reported she was feeling quite well. Patient underwent extensive evaluation for her fever including lumbar puncture, blood and urine cultures, and chest x-rays. All of patient cultures were negative here. Patient was treated with vancomycin and Zosyn. Patient was transitioned to just Zosyn and removed from the ICU. Patient has in general poor oral intake and was started on Megace. Patient self admits to dementia and her medications also support this. Her mental status does wax and wane. Patient currently has been doing well on Zosyn and have transition patient to Levaquin. Patient is currently stable for discharge home, but at this time I feel that it is not safe for patient to be discharged home alone as she is not fully oriented. Discharge planning has been consulted and we are attempting to reach her family to arrange for care at home. Physical Exam Vital Signs: Temp Pulse Resp BP Pulse Ox 98.6 F 66 16 126/62 H 97 02/27/17 07:18 02/27/17 07:18 02/27/17 07:18 02/27/17 07:18 02/27/17 07:18 Intake & Output 02/26/17 02/27/17 02/28/17 06:59 06:59 06:59 Intake Total 2140 442 Balance 2140 442 Weight 47 kg 48.1 kg Exam: General: Chronically ill-appearing, awake alert and oriented x1, no acute respiratory distress HEENT: AT/NC, PERRL, EOMI, oropharynx is moist, pink, no scleral icterus, no conjunctival injection Neck: No JVD, trachea midline Chest: Clear to auscultation bilaterally CV: Regular rate and rhythm, normal S1 and S2, no murmur, rub, or gallop Abdomen: Soft, nontender to palpation, nondistended, active bowel sounds; no rebound, rigidity, or guarding Extremities: No cyanosis, clubbing or edema Neuro: Cranial nerves II through XII are grossly intact without focal deficits; awake alert and oriented x3 Psych: Normal mood and affect Results Laboratory Results: 02/27/17 04:10 02/27/17 04:10 02/27/17 02/27/17 04:10 04:10 WBC 7.8 RBC 3.07 L Hgb 10.3 L Hct 29.6 L MCV 96 MCH 33.5 H MCHC 34.7 RDW 13.3 Plt Count 195 Seg Neutrophils % 63.5 Lymphocytes % 25.9 Monocytes % 7.6 Eosinophils % 2.3 Basophils % 0.7 Absolute Neutrophils 4.9 Absolute Lymphocytes 2.0 Absolute Monocytes 0.6 Absolute Eosinophils 0.2 Absolute Basophils 0.1 Sodium 143.1 Potassium 3.1 L Chloride 110 H Carbon Dioxide 24 Anion Gap 9 BUN 16 Creatinine 0.60 Est GFR ( Amer) > 60 Est GFR (Non-Af Amer) > 60 Glucose 90 Calcium 9.6 Magnesium 2.0 Total Bilirubin 0.6 AST 27 ALT 28 Alkaline Phosphatase 64 Total Protein 5.6 L Albumin 3.4 L 02/22/17 09:09 Cerebral Spinal Fluid - Csf Enterovirus RNA (PCR) - Final 02/22/17 02/22/17 15:30 15:30 Creatine Kinase 195 H CK-MB (CK-2) 0.47 Troponin I < 0.012 Impressions: Lumbar Puncture 02/22/17 08:09 IMPRESSION: Lumbar puncture under fluoroscopy. No immediate complication. Fluid sent for testing as per hospitalist physician Head CT 02/23/17 00:00 IMPRESSION: No acute findings. Chest X-Ray 02/23/17 06:00 IMPRESSION: No acute cardiopulmonary findings. Qualifiers PATEINT BEING DISCHARGED WITH ANY OF THE FOLLOWING DIAGNOSIS?: No Plan Time Spent: Less than 30 Minutes
[2017-02-27 14:13] VITALS: BP 108/43
== END 2017-02-27 14:49 | disposition home or self-care (01) | DRG 871 ==
LOC: ER 22:36 → UNDOADMIN 02-22 05:10 → EH 02-22 05:10 → ICU 02-22 09:18 → 3N 02-23 18:55
PROVIDERS: ADMIT Family Medicine; ATTEND Family Medicine
PROC: 06HM33Z Insertion of Infusion Device into Right Femoral Vein, Percutaneous Approach (ICD-10-PCS; principal; 2017-02-22)
PROC: 009U3ZX Drainage of Spinal Canal, Percutaneous Approach, Diagnostic (ICD-10-PCS; 2017-02-22)
PROC: B01BZZZ Fluoroscopy of Spinal Cord (ICD-10-PCS; 2017-02-22)
DX: A41.9 Sepsis, unspecified organism (principal); R65.21 Severe sepsis with septic shock; N39.0 Urinary tract infection, site not specified; E44.1 Mild protein-calorie malnutrition; Z68.1 Body mass index [BMI] 19.9 or less, adult; E78.5 Hyperlipidemia, unspecified; Y92.238 Other place in hospital as the place of occurrence of the external cause; T44.4X5A Adverse effect of predominantly alpha-adrenoreceptor agonists, initial encounter; R00.1 Bradycardia, unspecified; F32.9 Major depressive disorder, single episode, unspecified; R25.8 Other abnormal involuntary movements; F03.90 Unspecified dementia, unspecified severity, without behavioral disturbance, psychotic disturbance, mood disturbance, and anxiety; Z86.73 Personal history of transient ischemic attack (TIA), and cerebral infarction without residual deficits; Z87.891 Personal history of nicotine dependence
CPT/HCPCS: 36415; 51702; 62270; 70450; 71010; 71020; 80048; 80053; 80202; 80307; 81001; 82024; 82533; 82550; 82553; 82565; 82607; 82803; 82945; 82962; 83605; 83735; 84100; 84134; 84157; 84439; 84443; 84484; 85025; 85610; 86403; 86592; 87015; 87040; 87070; 87086; 87116; 87205; 87206; 87252; 87493; 87498; 87529; 87804; 89050; 93005; 93010; 96365; 96367; 96375; 99291; C1751; G8978-GP; G8979-GP; J0133; J0696; J0834; J1265; J1644; J2370; J2543; J3370; J3475; J3490; J7030; J7050; J7060; P9047

== ENCOUNTER 2017-02-28 12:29 | Emergency (ER) | payer MEDICARE, MEDICAID ==
--- NOTE | 2017-02-28 12:50 | ER Document Report ---
ED Medical Screen (RME) - General Chief Complaint: Weakness Stated Complaint: REEVALUATION Time Seen by Provider: 02/28/17 12:48 Notes: Patient was recently admitted to this hospital in the ICU for urosepsis. Per family she was discharged yesterday. She does have dementia. Family states the patient is too weak to function at home and cannot feed herself or go to the bathroom nor can she even get out of bed. Home health nurse came out today and recommended that the patient return to the hospital for an evaluation for possible readmission. TRAVEL OUTSIDE OF THE [place] IN LAST 30 DAYS: No - Related Data Allergies/Adverse Reactions: No Known Allergies Allergy (Verified 02/28/17 12:32) Past Medical History - Past Medical History Cardiac Medical History: Reports: Hx Hypercholesterolemia Denies: Hx Atrial Fibrillation, Hx Congestive Heart Failure, Hx Coronary Artery Disease, Hx DVT, Hx Heart Attack, Hx Hypertension, Hx Pulmonary Embolism Pulmonary Medical History: Denies: Hx Asthma, Hx Bronchitis, Hx COPD, Hx Pneumonia, Hx Sleep Apnea Neurological Medical History: Denies: Hx Cerebrovascular Accident, Hx Seizures Endocrine Medical History: Denies: Hx Diabetes Mellitus Type 1, Hx Diabetes Mellitus Type 2, Hx Hyperthyroidism, Hx Hypothyroidism Renal/ Medical History: Denies: Hx Peritoneal Dialysis GI Medical History: Denies: Hx Cirrhosis, Hx Gastroesophageal Reflux Disease, Hx Hepatitis Musculoskeltal Medical History: Reports Hx Arthritis Skin Medical History: Reports Hx Eczema Psychiatric Medical History: Reports: Hx Depression Infectious Medical History: Denies: Hx Hepatitis Past Surgical History: Reports: Hx Hysterectomy, Hx Vascular Surgery - Vein stripping of leg.. Denies: Hx Pacemaker - Immunizations Hx Diphtheria, Pertussis, Tetanus Vaccination: Yes
[2017-02-28 13:46] LABS: ALANINE AMINOTRANSFERASE 30 U/L (9-52); ALBUMIN 4.4 g/dL (3.5-5.0); ALKALINE PHOSPHATASE 79 U/L (38-126); ANION GAP 13 (5-19); ASPARTATE AMINO TRANSFERASE 23 U/L (14-36); BILIRUBIN,DIRECT 0.3 mg/dL (0.0-0.4); BILIRUBIN,TOTAL 0.6 mg/dL (0.2-1.3); BLOOD UREA NITROGEN 14 mg/dL (7-20); CALCIUM 10.4 mg/dL (8.4-10.2); CARBON DIOXIDE 22 mmol/L (22-30); CHLORIDE 107 mmol/L (98-107); CREATININE RESULT 0.57 mg/dL (0.52-1.25); GLUCOSE 90 mg/dL (75-110); POTASSIUM 3.6 mmol/L (3.6-5.0); SODIUM 141.8 mmol/L (137-145); TOTAL PROTEIN 6.9 g/dL (6.3-8.2)
[2017-02-28 14:20] LABS: ABSOLUTE BASOPHILS # (AUTO) 0.1 10^3/uL (0.0-0.2); ABSOLUTE EOSINOPHILS # (AUTO) 0.1 10^3/uL (0.0-0.6); ABSOLUTE LYMPHOCYTES (AUTO) 2.1 10^3/uL (0.5-4.7); ABSOLUTE MONOCYTES (AUTO) 0.5 10^3/uL (0.1-1.4); ABSOLUTE NEUT (AUTO) 5.8 10^3/uL (1.7-8.2); BASOPHILS % (AUTO) 0.8 % (0-2); EOSINOPHILS % (AUTO) 1.6 % (0-6); HEMATOCRIT 31.3 % (36.0-47.0); HEMOGLOBIN 10.6 g/dL (12.0-15.5); HGB HCT DIFFERENCE 0.5; LYMPHOCYTES % (AUTO) 24.7 % (13-45); MEAN CORPUSCULAR HEMOGLOBIN 32.7 pg (27.0-33.4); MEAN CORPUSCULAR HGB CONC 33.9 g/dL (32.0-36.0); MEAN CORPUSCULAR VOLUME 96 fl (80-97); MONOCYTES % (AUTO) 5.8 % (3-13); RED BLOOD COUNT 3.25 10^6/uL (3.72-5.28); RED CELL DISTRIBUTION WIDTH 13.7 % (11.5-14.0); SEGMENTED NEUTROPHILS % (AUTO) 67.1 % (42-78); WHITE BLOOD COUNT 8.6 10^3/uL (4.0-10.5)
--- NOTE | 2017-02-28 15:42 | ER Document Report ---
ED General - General Chief Complaint: Weakness Stated Complaint: WEAKNESS Time Seen by Provider: 02/28/17 12:48 Mode of Arrival: Wheelchair Information source: Patient, Relative Notes: Patient is a 71-year-old female who presents to the ER today for weakness since having urosepsis and being admitted to the hospital for that recently. Family states the patient cannot even get out of bed on her own and is not making herself any food. Prior to the urosepsis and admission she was completely independent at home and did things for herself. Family states that they work and that they cannot take care of her 24 7. They state that she has not eaten in 3 days because she does not have the strength to get up and make any type of food. She denies any other symptoms. TRAVEL OUTSIDE OF THE [place] IN LAST 30 DAYS: No - Related Data Allergies/Adverse Reactions: No Known Allergies Allergy (Verified 02/28/17 12:32) Home Medications: Current Home Medications Alprazolam [Xanax 0.5 mg Tablet] 0.5 mg PO DAILY PRN 02/28/17 [History] Vortioxetine Hydrobromide [Brintellix] 10 mg PO DAILY 02/28/17 [History] Past Medical History - General Information source: Patient, Relative - Social History Smoking Status: Never Smoker Chew tobacco use (# tins/day): No Frequency of alcohol use: None Drug Abuse: None Family History: Reviewed & Not Pertinent Patient has suicidal ideation: No Patient has homicidal ideation: No - Past Medical History Cardiac Medical History: Reports: Hx Hypercholesterolemia Denies: Hx Atrial Fibrillation, Hx Congestive Heart Failure, Hx Coronary Artery Disease, Hx DVT, Hx Heart Attack, Hx Hypertension, Hx Pulmonary Embolism Pulmonary Medical History: Denies: Hx Asthma, Hx Bronchitis, Hx COPD, Hx Pneumonia, Hx Sleep Apnea Neurological Medical History: Denies: Hx Cerebrovascular Accident, Hx Seizures Endocrine Medical History: Denies: Hx Diabetes Mellitus Type 1, Hx Diabetes Mellitus Type 2, Hx Hyperthyroidism, Hx Hypothyroidism Renal/ Medical History: Denies: Hx Peritoneal Dialysis GI Medical History: Denies: Hx Cirrhosis, Hx Gastroesophageal Reflux Disease, Hx Hepatitis Musculoskeltal Medical History: Reports Hx Arthritis Skin Medical History: Reports Hx Eczema Psychiatric Medical History: Reports: Hx Depression Infectious Medical History: Denies: Hx Hepatitis Past Surgical History: Reports: Hx Hysterectomy, Hx Vascular Surgery - Vein stripping of leg.. Denies: Hx Pacemaker - Immunizations Hx Diphtheria, Pertussis, Tetanus Vaccination: Yes Review of Systems - Review of Systems Constitutional: See HPI EENT: No symptoms reported Cardiovascular: No symptoms reported Respiratory: No symptoms reported Gastrointestinal: No symptoms reported Genitourinary: No symptoms reported Female Genitourinary: No symptoms reported Musculoskeletal: No symptoms reported Skin: No symptoms reported Hematologic/Lymphatic: No symptoms reported Neurological/Psychological: No symptoms reported Physical Exam - Vital signs Vitals: Temp Pulse Resp BP Pulse Ox 97.6 F 68 20 111/93 H 98 02/28/17 13:00 02/28/17 13:00 02/28/17 13:00 02/28/17 13:00 02/28/17 13:00 - Notes Notes: PHYSICAL EXAMINATION: GENERAL: Elderly, weak appearing, but in no acute distress. HEAD: Atraumatic, normocephalic. EYES: Pupils equal round and reactive to light, extraocular movements intact, sclera anicteric, conjunctiva are normal. NECK: Normal range of motion, supple without lymphadenopathy LUNGS: CTAB and equal. No wheezes rales or rhonchi. HEART: Regular rate and rhythm without murmurs ABDOMEN: Soft, no tenderness. No guarding, no rebound EXTREMITIES: Normal range of motion, no pitting edema. No cyanosis. NEUROLOGICAL: Cranial nerves grossly intact. equal strength bilaterally but very weak PSYCH: flat affect SKIN: Warm, Dry, normal turgor, no rashes or lesions noted Course - Re-evaluation Re-evalutation: 02/28/17 15:40 pt has room at [facility] set up by director of social work here. She is stable for discharge to rehab/usp. - Vital Signs Vital signs: Temp Pulse Resp BP Pulse Ox 99.1 F 77 16 113/48 L 96 02/28/17 16:13 02/28/17 16:13 02/28/17 16:13 02/28/17 16:13 02/28/17 16:13 - Laboratory Result Diagrams: 02/28/17 14:06 02/28/17 13:05 Laboratory results interpreted by me: 02/28/17 02/28/17 13:05 14:06 RBC 3.25 L Hgb 10.6 L Hct 31.3 L Calcium 10.4 H Discharge - Discharge Clinical Impression: Weakness Condition: Stable Disposition: REHAB FACILITY Additional Instructions: Return immediately for any new or worsening symptoms. Follow up with primary care provider, call tomorrow to make followup appointment. Referrals: BENJAMIN MARIN NP [Primary Care Provider] - Follow up as needed
[2017-02-28 16:14] VITALS: BP 113/48
== END 2017-02-28 16:13 ==
LOC: ER 12:29
DX: R53.1 Weakness (principal)
CPT/HCPCS: 36415; 80053; 85025; 99285

== ENCOUNTER 2017-05-29 19:54 | Emergency (ER) | payer MEDICARE, MEDICAID ==
[2017-05-29 20:05] VITALS: BP 114/67
[2017-05-29 20:34] LABS: APPEARANCE,URINE CLOUDY; BILIRUBIN,URINE NEGATIVE (NEGATIVE); GLUCOSE, URINE NEGATIVE (NEGATIVE); KETONES,URINE NEGATIVE (NEGATIVE); LEUKOCYTE ESTERASE,URINE LARGE (NEGATIVE); NITRITE,URINE NEGATIVE (NEGATIVE); PROTEIN,URINE NEGATIVE (NEGATIVE); URINE SPECIFIC GRAVITY 1.015; UROBILINOGEN,URINE NEGATIVE mg/dL (<2.0)
[2017-05-30] MEDS ORDERED: PHENAZOPYRIDINE HCL 200 MG TABLET PO ONE (00:38)
[2017-05-30] MEDS ORDERED: ACETAMINOPHEN 325 MG TABLET PO ONE (00:38)
--- NOTE | 2017-05-30 00:38 | ER Document Report ---
HPI - HPI Patient complains to provider of: pyuria with UTI Pain Level: 4 Context: Patient is a 71-year-old female who presents emergency department with her son. Past medical history significant for chronic UTIs, Alzheimer's, dementia with previous CVA and NC. Son states that she has a history of chronic UTIs and was recently started on Keflex. States today she has been complaining of severe pyuria. Denies any flank pain, altered mental status from her baseline, vomiting, diarrhea, constipation. Denies any hematuria, fever. - REPRODUCTIVE Reproductive: DENIES: : Past Medical History - Social History Smoking Status: Unknown if Ever Smoked Family History: Reviewed & Not Pertinent Patient has suicidal ideation: No Patient has homicidal ideation: No - Past Medical History Cardiac Medical History: Reports: Hx Hypercholesterolemia Denies: Hx Atrial Fibrillation, Hx Congestive Heart Failure, Hx Coronary Artery Disease, Hx DVT, Hx Heart Attack, Hx Hypertension, Hx Pulmonary Embolism Pulmonary Medical History: Denies: Hx Asthma, Hx Bronchitis, Hx COPD, Hx Pneumonia, Hx Sleep Apnea Neurological Medical History: Denies: Hx Cerebrovascular Accident, Hx Seizures Endocrine Medical History: Denies: Hx Diabetes Mellitus Type 1, Hx Diabetes Mellitus Type 2, Hx Hyperthyroidism, Hx Hypothyroidism Renal/ Medical History: Denies: Hx Peritoneal Dialysis GI Medical History: Denies: Hx Cirrhosis, Hx Gastroesophageal Reflux Disease, Hx Hepatitis Musculoskeltal Medical History: Reports Hx Arthritis Skin Medical History: Reports Hx Eczema Psychiatric Medical History: Reports: Hx Depression Infectious Medical History: Denies: Hx Hepatitis Past Surgical History: Reports: Hx Hysterectomy, Hx Vascular Surgery - Vein stripping of leg.. Denies: Hx Pacemaker - Immunizations Hx Diphtheria, Pertussis, Tetanus Vaccination: Yes Vertical Provider Document - CONSTITUTIONAL Agree With Documented VS: Yes Notes: PHYSICAL EXAM GENERAL: Alert, interacts well. LUNGS: Clear to auscultation bilaterally, no wheezes, rales, or rhonchi. No respiratory distress. HEART: Regular rate and rhythm. No murmurs, gallops, or rubs. ABDOMEN: Soft, nondistended, mild suprapubic tenderness. No guarding, rebound, or rigidity.. Bowel sounds present in all 4 quadrants. EXTREMITIES: Moves all 4 extremities spontaneously. No edema, radial and dorsalis pedis pulses 2/4 bilaterally. No cyanosis. Back: Negative for CVA tenderness. NEUROLOGICAL: Alert and oriented x4. Normal speech. PSYCH: Normal affect, normal mood. SKIN: Warm, dry, normal turgor. No rashes or lesions noted. - INFECTION CONTROL TRAVEL OUTSIDE OF THE [place] IN LAST 30 DAYS: No - RESPIRATORY O2 Sat by Pulse Oximetry: 98 Course - Re-evaluation Re-evalutation: 05/30/17 00:48 Patient is a 71-year-old female who is hemodynamically stable, no acute distress afebrile. Patient is tolerating p.o. without any difficulty. Urinalysis shows evidence of UTI which patient is already taking antibiotics for. Culture has been sent. Send patient home with a prescription for Pyridium and education on taking Tylenol. Otherwise educated on following up with urology. Son agrees with plan. Patient is stable for discharge home - Vital Signs Vital signs: Temp Pulse Resp BP Pulse Ox 97.4 F 74 18 114/67 98 05/29/17 20:02 05/29/17 20:02 05/29/17 20:02 05/29/17 20:02 05/29/17 20:02 - Laboratory Laboratory results interpreted by me: 05/29/17 20:07 Urine Blood MODERATE H Ur Leukocyte Esterase LARGE H Discharge - Discharge Clinical Impression: Pyuria UTI (urinary tract infection) Qualifiers: Urinary tract infection type: acute cystitis Hematuria presence: without hematuria Qualified Code(s): N30.00 - Acute cystitis without hematuria Condition: Good Disposition: HOME, SELF-CARE Additional Instructions: URINARY TRACT INFECTION: Your evaluation indicates that you have a urinary tract infection. This is due to germs growing in the bladder. This is a common problem. This infection usually responds quickly to antibiotics. Your antibiotic should be taken exactly as prescribed. Drink plenty of fluids -- three to four quarts a day. Occasionally, a bladder anesthetic will be prescribed to help stop the feeling of urgency until the antibiotic has a chance to clear the infection. This may cause your urine to be dark orange. Certain urine infections require a culture. If the doctor obtained a culture, the results will be back in two days. You should call to see if a change in treatment is needed. A repeat urinalysis after you finish treatment is often recommended. The physician will let you know if further testing is required. Call the doctor if you develop fever, chills, flank pain, inability to urinate, or blood in the urine. ANTIBIOTIC THERAPY: You have been given an antibiotic prescription. It's important that you take all the medication, unless instructed otherwise by your physician. Failure to complete the entire course can result in relapse of your condition. Common side effects of antibiotics include nausea, intestinal cramping, or diarrhea. Women may develop vaginal yeast infections, and babies can get yeast (thrush) in the mouth following the use of antibiotics. Contact your physician if you develop significant side effects from this medication. Allergy to this antibiotic can result in hives, wheezing, faintness, or itching. If symptoms of allergy occur, stop the medication and call the doctor. CEPHALEXIN: The antibiotic you've been prescribed is a member of the cephalosporin class. This type of antibiotic covers a wide variety of infections, including those of the skin, lungs, and urinary tract. It's useful for staph infections. This antibiotic is slightly similar to the penicillin family. In rare cases , a person who is allergic to penicillin will also be allergic to this medication. If you have had a severe allergic reaction to penicillin, and have not taken this antibiotic since that time, notify your doctor. Antibiotics which cover many germs ("broad spectrum" antibiotics) are more likely to cause diarrhea or "yeast" infections. Women prone to vaginal yeast problems may suffer an attack after taking this antibiotic. In infants, oral thrush (white spots "stuck" on the cheek) or yeast diaper rash may result. See your doctor if these problems occur. Call at once if you develop itching, hives , shortness of breath, or lightheadedness. URINARY ANESTHETIC AGENT: You have been given a medication (Pyridium) for urinary tract discomfort. This medicine numbs the lining of the bladder and urethra, resulting in less pain, burning, and urgency. You may take it as needed, according to instructions. When the symptoms resolve, you can stop this medication (be sure to continue any other medications the doctor has given you). This medicine turns the urine a dark orange. It may stain underwear. Occasionally, it can cause nausea. Return for evaluation if there are any unexpected effects, such as itching, hives, or shortness of breath. FOLLOW-UP CARE: If you have been referred to a physician for follow-up care, call the physician s office for an appointment as you were instructed or within the next two days. If you experience worsening or a significant change in your symptoms, notify the physician immediately or return to the Emergency Department at any time for re-evaluation. Prescriptions: Phenazopyridine HCl [Pyridium 200 mg Tablet] 200 mg PO TID #15 tablet Referrals: [facility] [Provider Group] - Follow up in 1 week
== END 2017-05-30 01:03 | disposition home or self-care (01) ==
LOC: ER 19:54
DX: N30.00 Acute cystitis without hematuria (principal); G30.9 Alzheimer's disease, unspecified; F02.80 Dementia in other diseases classified elsewhere, unspecified severity, without behavioral disturbance, psychotic disturbance, mood disturbance, and anxiety; Z86.73 Personal history of transient ischemic attack (TIA), and cerebral infarction without residual deficits; I25.2 Old myocardial infarction
CPT/HCPCS: 99283; 87086; 87088; 81001; 87186; A9270 ×2; J3490

== ENCOUNTER 2017-10-02 08:56 | Day surgery (SDC) | payer MEDICARE, MEDICAID ==
[2017-10-02 09:56] LABS: HEMATOCRIT 32.5 % (36.0-47.0); HEMOGLOBIN 11.1 g/dL (12.0-15.5); MEAN CORPUSCULAR HEMOGLOBIN 33.1 pg (27.0-33.4); MEAN CORPUSCULAR HGB CONC 34.2 g/dL (32.0-36.0); MEAN CORPUSCULAR VOLUME 97 fl (80-97); PLATELET COUNT 326 10^3/uL (150-450); RED BLOOD COUNT 3.36 10^6/uL (3.72-5.28); RED CELL DISTRIBUTION WIDTH 13.6 % (11.5-14.0); WHITE BLOOD COUNT 6.5 10^3/uL (4.0-10.5)
[2017-10-02 10:19] LABS: INTERNATIONAL RATION (INR) 0.96; PROTHROMBIN TIME 13.5 SEC (11.4-15.4)
[2017-10-02 10:21] LABS: BLOOD UREA NITROGEN 22 mg/dL (7-20)
[2017-10-02 10:25] LABS: PARTIAL THROMBOPLASTIN TIME 43.5 SEC (23.5-35.8)
[2017-10-02] MEDS ORDERED: LIDOCAINE 1% INJ-PF (10 MG/ML) 30 ML SDV ONE (11:37)
[2017-10-02] MEDS ORDERED: MIDAZOLAM 2 MG/2 ML INJ ONE (11:37)
[2017-10-02] MEDS ORDERED: FENTANYL CITRATE INJ/PF 100 MCG/2 ML AMPUL ONE (11:37)
--- NOTE | 2017-10-02 12:54 | RADIOLOGY REPORT (SQ) ---
EXAM DESCRIPTION: CHEST SINGLE VIEW COMPLETED DATE/TIME: 10/02/2017 12:41 pm REASON FOR STUDY: POST RIGHT LUNG BIOPSY COMPARISON: CT lung biopsy 10/02/2017 Chest films 02/23/2017 EXAM PARAMETERS: NUMBER OF VIEWS: One view. TECHNIQUE: Single frontal radiographic view of the chest acquired. RADIATION DOSE: NA LIMITATIONS: None. FINDINGS: LUNGS AND PLEURA: There is a mass in the medial aspect right lower lobe infrahilar region, previously biopsied. No pneumothorax. No pleural effusions. No focal infiltrates. There is obstructive lung disease with hyperlucency of the lung parenchyma in the upper lobes bilater ally. MEDIASTINUM AND HILAR STRUCTURES: No masses. Contour normal. HEART AND VASCULAR STRUCTURES: Heart normal in size. Normal vasculature. BONES: No acute findings. HARDWARE: Bilateral breast implants OTHER: No other significant finding. IMPRESSION: No pneumothorax immediately post right lower lobe lung mass biopsy TECHNICAL DOCUMENTATION: JOB ID: [id number] [employer]- All Rights Reserved Reading location - IP/workstation name: [email or web address]
--- NOTE | 2017-10-02 12:59 | RADIOLOGY REPORT (SQ) ---
EXAM DESCRIPTION: CT BIOPSY LUNG/MEDIASTINUM; CT NEEDLE PLACEMENT COMPLETED DATE/TIME: 10/02/2017 12:22 pm REASON FOR STUDY: OTHER NON SPECIFIC ABNORMAL FINDING OF LUNG FIELD; OTHER NON SPECIFIC ABNORMAL FIN DING OF LUNG FIELD, LUNG BX R91.8 OTHER NONSPECIFIC ABNORMAL FINDING OF LUNG FIELD COMPARISON: None. TECHNIQUE: CT guided biopsy of the medial right lower lobe mass performed with conscious sedation. CT Fluoroscopy Time: 4.[address] scanners at this facility use dose modulation, iterative reconstruction, and/or weight based d osing when appropriate to reduce radiation dose to as low as reasonably achievable (ALARA). [facility]: Dose Right [facility]: CareDose [facility]: Dose Right [facility]: Teradose 4D [facility]: [employer] RADIATION DOSE: 49 mGy. FINDINGS: The procedure was discussed with the patient and the patient agreed to the procedure. Prio r to the procedure, a time out was performed to verify the patient's identity and planned procedure. IV sedation was administered and physician direction by the registered nurse using 1 milligrams of Ve rsed and 25 micrograms of fentanyl. Physiologic monitoring was provided before, during, and after sed ation. The total sedation time was 30 minutes. Documentation face to face time, the performing proceduralist, spent monitoring the patient: [address] scanning was performed to localize the percutaneous site for the biopsy approach. After sterile skin prep and local lidocaine for skin and deep tissue anesthesia, a coaxial biopsy nee dle was used to obtain multiple cores of tissue. Biopsy tract was embolized with a [employer] Closure device The biopsy tissue was submitted to the lab in formalin. There were no immediate complications. Pathology is pending at the time of dictation. IMPRESSION: CT GUIDED BIOPSY OF THE RIGHT LOWER LOBE MASS PERFORMED WITHOUT IMMEDIATE COMPLICATION. PATHOLOGY PENDING. COMMENT: Quality ID [id number]: Final reports for procedures using fluoroscopy that document radiation exp osure indices, or exposure time and number of fluorographic images (if radiation exposure indices are not available) Patient medication list reviewed: Yes- Quality ID# [id number]:Eligible professional attests to documenting i n the medical record they obtained, updated, or reviewed the patient's current medications.. TECHNICAL DOCUMENTATION: JOB ID: [id number] Quality ID# [id number]: Final reports with documentation of one or more dose reduction techniques (e.g., Aut omated exposure control, adjustment of the mA and/or kV according to patient size, use of iterative r econstruction technique) 2010 [employer]- All Rights Reserved Reading location - IP/workstation name: [email or web address]
--- NOTE | 2017-10-02 12:59 | RADIOLOGY REPORT (SQ) ---
EXAM DESCRIPTION: CT BIOPSY LUNG/MEDIASTINUM; CT NEEDLE PLACEMENT COMPLETED DATE/TIME: 10/02/2017 12:22 pm REASON FOR STUDY: OTHER NON SPECIFIC ABNORMAL FINDING OF LUNG FIELD; OTHER NON SPECIFIC ABNORMAL FIN DING OF LUNG FIELD, LUNG BX R91.8 OTHER NONSPECIFIC ABNORMAL FINDING OF LUNG FIELD COMPARISON: None. TECHNIQUE: CT guided biopsy of the medial right lower lobe mass performed with conscious sedation. CT Fluoroscopy Time: 4.[address] scanners at this facility use dose modulation, iterative reconstruction, and/or weight based d osing when appropriate to reduce radiation dose to as low as reasonably achievable (ALARA). [facility]: Dose Right [facility]: CareDose [facility]: Dose Right [facility]: Teradose 4D [facility]: [employer] RADIATION DOSE: 49 mGy. FINDINGS: The procedure was discussed with the patient and the patient agreed to the procedure. Prio r to the procedure, a time out was performed to verify the patient's identity and planned procedure. IV sedation was administered and physician direction by the registered nurse using 1 milligrams of Ve rsed and 25 micrograms of fentanyl. Physiologic monitoring was provided before, during, and after sed ation. The total sedation time was 30 minutes. Documentation face to face time, the performing proceduralist, spent monitoring the patient: [address] scanning was performed to localize the percutaneous site for the biopsy approach. After sterile skin prep and local lidocaine for skin and deep tissue anesthesia, a coaxial biopsy nee dle was used to obtain multiple cores of tissue. Biopsy tract was embolized with a [employer] Closure device The biopsy tissue was submitted to the lab in formalin. There were no immediate complications. Pathology is pending at the time of dictation. IMPRESSION: CT GUIDED BIOPSY OF THE RIGHT LOWER LOBE MASS PERFORMED WITHOUT IMMEDIATE COMPLICATION. PATHOLOGY PENDING. COMMENT: Quality ID [id number]: Final reports for procedures using fluoroscopy that document radiation exp osure indices, or exposure time and number of fluorographic images (if radiation exposure indices are not available) Patient medication list reviewed: Yes- Quality ID# [id number]:Eligible professional attests to documenting i n the medical record they obtained, updated, or reviewed the patient's current medications.. TECHNICAL DOCUMENTATION: JOB ID: [id number] Quality ID# [id number]: Final reports with documentation of one or more dose reduction techniques (e.g., Aut omated exposure control, adjustment of the mA and/or kV according to patient size, use of iterative r econstruction technique) 2010 [employer]- All Rights Reserved Reading location - IP/workstation name: [email or web address]
[2017-10-02] MEDS ORDERED: ACETAMINOPHEN 325 MG TABLET ONE (14:23)
--- NOTE | 2017-10-02 15:16 | RADIOLOGY REPORT (SQ) ---
EXAM DESCRIPTION: CHEST SINGLE VIEW COMPLETED DATE/TIME: 10/02/2017 2:42 pm REASON FOR STUDY: POST RIGHT LUNG BIOPSY--- 2 HR FILM COMPARISON: 10/02/2017 EXAM PARAMETERS: NUMBER OF VIEWS: One view. TECHNIQUE: Single frontal radiographic view of the chest acquired. RADIATION DOSE: NA LIMITATIONS: None. FINDINGS: LUNGS AND PLEURA: No pneumothorax, two hour post biopsy. Right lower lung mass is again i dentified. The visualized left lung is stable in appearance. MEDIASTINUM AND HILAR STRUCTURES: No masses. Contour normal. HEART AND VASCULAR STRUCTURES: Heart normal in size. Normal vasculature. BONES: No acute findings. HARDWARE: Bilateral breast implants. OTHER: No other significant finding. IMPRESSION: 1 Stable examination of the chest since the prior study performed earlier on the same da te. No pneumothorax identified. 2 Right lower lung mass, unchanged. 3. No pneumothorax. TECHNICAL DOCUMENTATION: JOB ID: [id number] [employer]- All Rights Reserved Reading location - IP/workstation name: [email or web address]
[2017-10-02 15:36] VITALS: BP 126/79
== END 2017-10-02 15:15 | disposition home or self-care (01) ==
LOC: RAD 08:56
PROVIDERS: ATTEND Internal Medicine Medical Oncology
PROC: 0BBF3ZX Excision of Right Lower Lung Lobe, Percutaneous Approach, Diagnostic (ICD-10-PCS; principal; 2017-10-02)
DX: C34.31 Malignant neoplasm of lower lobe, right bronchus or lung (principal); R91.8 Other nonspecific abnormal finding of lung field; Z87.891 Personal history of nicotine dependence
CPT/HCPCS: 36415; 84520; 82565; 85027; 85610; 85730; 88342 ×2; 88341 ×2; 88305 ×2; 71045; 77012; 32405; A9270; J2250; J3010; J3490

== ENCOUNTER → 2017-10-15 | Outpatient (CLI) | payer MEDICARE, MEDICAID ==
--- NOTE | 2017-10-16 08:17 | RADIOLOGY REPORT (SQ) ---
EXAM DESCRIPTION: PET CT SKULL/THIGH COMPLETED DATE/TIME: 10/15/2017 8:36 pm REASON FOR STUDY: ABNORMAL FINDINGS IN LUNG R91.8 OTHER NONSPECIFIC ABNORMAL FINDING OF LUNG FIELD COMPARISON: CT lung biopsy 11/01/2017 RADIONUCLIDE AND DOSE: 12.5 mCi F18 FDG The route of agent administration: Intravenous FASTING BLOOD SUGAR: 100 mg/dl CONTRAST TYPE AND DOSE: No CT contrast given. TECHNIQUE: Blood glucose level was verified. Above dose of FDG was injected intravenously. 2-D seg mented attenuation correction images were obtained from the base of the skull to the midthighs. Nonc ontrast CT images were obtained for attenuation correction and fusion with emission images. CT image s were performed without oral or intravenous contrast and are not sensitive for parenchymal lesions. A series of overlapping emission PET images were obtained. Images reviewed and manipulated at [facility] work station by the radiologist. Images stored on PACS. LIMITATIONS: None. FINDINGS: HEAD AND NECK: There is activity in the midline tongue probably artifact. Medially deviat ed right arytenoid cartilage from vocal cord paralysis. No hypermetabolic cervical masses or adenopa thy CHEST: Previously biopsied mass in the right superior segment lower lobe measures 5 cm transverse by 3.6 cm AP on axial image 102, with SUV of 13.2. The right hilum is enlarged 4 x 3 cm on axial image 107 from hypermetabolic adenopathy with SUV of 11 . ABDOMEN AND PELVIS: No areas of abnormal metabolic activity in the abdomen or pelvis. Expected physi ologic activity is present in the genitourinary system and bowel. PROXIMAL LOWER EXTREMITIES: No areas of abnormal metabolic activity in the soft tissues of the lower extremities. BONES: There is a diffuse enlargement of the left anterior 1st rib with the permeative lytic pattern. SUV [address] FINDINGS: Bilateral breast implants. Right vocal cord paralysis. Ascending aorta 4 cm diameter. Colonic diverticulosis without CT signs of acute diverticulitis. Post hysterectomy OTHER: Liver background SUV 3.0. 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
== END ==
LOC: RAD 18:17
PROVIDERS: ATTEND Internal Medicine Medical Oncology
DX: R91.8 Other nonspecific abnormal finding of lung field (principal)
CPT/HCPCS: 78815; A9552